=== PATIENT | female | born 1995 | race African-American/Black ===

== ENCOUNTER 2017-03-01 13:32 | Emergency (ER) | payer OTHER ==
[~2017-03-01] VITALS: Ht 180.3 cm; Wt 80.0 kg
[2017-03-01 13:33] VITALS: BP 120/82; PULSE 90; RESP 20; TEMP 99; O2SAT 100
[2017-03-01] MEDS ORDERED: SODIUM CHLOR 0.9% 1000 ML INJ 1,000 ML IV ONE (13:46)
--- NOTE | 2017-03-01 13:51 | PD ---
HPI Chief Complaint: Sickle Cell Time Seen by Provider: 13:38 Travel History International Travel<30 days: No Contact w/Intl Traveler<30days: No Traveled to known affect area: No History of Present Illness HPI 21-year-old female, with history of sickle cell anemia (SS), presents to the emergency department with complaint of lower back pain that onset this morning. Says sickle cell pain is usually in her joints and back. Denies injury. Denies fever, vomiting. Denies chest pain, shortness of breath, abdominal pain. Reports urinary frequency and hesitancy. Denies dysuria. Denies vaginal discharge, odor, itch. Denies encopresis, incontinence, saddle anesthesias. Denies IV drug use or cancer. Denies paresthesias, loss of sensation, decreased range of motion, decreased strength to bilateral lower extremities. Last menstrual period ended today. Reports low back pain as stabbing sensation. Rates the pain 6/10. Has not taken any medications to alleviate her symptoms. Tried a heating pad for symptom management. No known relieving or aggravating factors. Primary care provider is Dr. Capps. Denies other significant past medical history. Allergies to Levaquin. Has no other medical complaints. No other modifying factors or associated signs and symptoms. PFSH Past Medical History Sickle Cell Disease: Yes ?: Not LMP: 03/01/17 Past Surgical History Surgical History: No Previous Surgery Social History Alcohol Use: No Tobacco Use: No Substance Use: No Allergies-Medications (Allergen,Severity, Reaction): Coded Allergies: levofloxacin (Verified Allergy, Unknown, 03/01/17) Reported Meds & Prescriptions Reported Meds & Active Scripts Active Pyridium (Phenazopyridine HCl) 100 Mg Tab 100 Mg PO Q8H PRN 3 Days [place] (Hydrocodone-Acetaminophen) 5 Mg-325 Mg Tab 1 Tab PO Q4H PRN Bactrim DS (Sulfamethoxazole-Trimethoprim) 800-160 Mg Tab 1 Tab PO BID 7 Days Review of Systems Except as stated in HPI: all other systems reviewed are Neg Physical Exam Narrative GENERAL: Well-nourished, well-developed black female patient, in no acute distress; afebrile, nontoxic-appearing SKIN: Warm and dry. HEAD: Atraumatic. Normocephalic. EYES: Pupils equal and round. No scleral icterus. No injection or drainage. ENT: Mucosa pink and moist. Airway patent. NECK: Trachea midline. CARDIOVASCULAR: Regular rate and rhythm. No murmur appreciated. RESPIRATORY: No accessory muscle use. Breath sounds clear and equal bilaterally. No retractions or tachypnea. GASTROINTESTINAL: Abdomen soft, non-tender, nondistended. Positive bowel sounds. No hepato-splenomegaly, or palpable masses. No guarding. MUSCULOSKELETAL: Bilateral lower extremities supple and non-tense with 2+ pedal pulses and sensory intact; with full range of motion and 5/5 strength. 2 + DTRs bilaterally. Active dorsiflexion and extension of bilateral feet. Bilateral straight leg raise is negative for low back pain. Ambulatory in room with normal gait. Sitting up in bed at 90. No obvious deformities. No clubbing. No cyanosis. No edema. BACK: Bilateral CVA tenderness. No midline point tenderness on palpation of the lumbar spine. Tenderness on palpation of bilateral lumbar iliosacral area. No obvious deformities. NEUROLOGICAL: Awake and alert. Oriented 3. No obvious cranial nerve deficits. Motor grossly within normal limits. Normal speech. Moves all extremities. 5/5 strength to all extremities. Sensory intact. PSYCHIATRIC: Appropriate mood and affect; insight and judgment normal. Data Data Last Documented VS Vital Signs Date Time Temp Pulse Resp B/P (MAP) Pulse Ox O2 Delivery O2 Flow Rate FiO2 03/01/17 13:43 17 Room Air 03/01/17 13:33 99.0 90 120/82 (95) 100 Orders Orders Complete Blood Count With Diff (03/01/17 13:46) Retic Count (03/01/17 13:46) Urinalysis - C+S If Indicated (03/01/17 13:46) Ecg Monitoring (03/01/17 13:46) Iv Access Insert/Monitor (03/01/17 13:46) Oximetry (03/01/17 13:46) Ketorolac Inj (Toradol Inj) (03/01/17 14:00) Sodium Chloride 0.9% Flush (Ns Flush) (03/01/17 14:00) Sodium Chlor 0.9% 1000 Ml Inj (Ns 1000 M (03/01/17 13:46) Ed Urine Pregnancytest Poc (03/01/17 13:46) Urine Culture (03/01/17 14:20) Morphine Inj (Morphine Inj) (03/01/17 15:45) Ceftriaxone Inj (Rocephin Inj) (03/01/17 15:45) Ed Discharge Order (03/01/17 15:38) Labs Laboratory Tests Test 03/01/17 14:20 White Blood Count 8.8 TH/MM3 Red Blood Count 2.79 MIL/MM3 Hemoglobin 8.4 GM/DL Hematocrit 24.7 % Mean Corpuscular Volume 88.7 FL Mean Corpuscular Hemoglobin 30.2 PG Mean Corpuscular Hemoglobin Concent 34.1 % Red Cell Distribution Width 26.5 % Platelet Count 837 TH/MM3 Mean Platelet Volume 8.1 FL CBC Comment AUTO DIFF Reticulocyte Count 7.7 % Absolute Reticulocyte Count 213.7 MIL/L Urine Color YELLOW Urine Turbidity HAZY Urine pH 7.5 Urine Specific [place] 1.013 Urine Protein 30 mg/dL Urine Glucose (UA) NEG mg/dL Urine Ketones NEG mg/dL Urine Occult Blood TRACE Urine Nitrite NEG Urine Bilirubin NEG Urine Urobilinogen GREATER THAN 12.0 MG/DL Urine Leukocyte Esterase LARGE Urine RBC 4 /hpf Urine WBC /hpf Urine WBC Clumps MANY Urine Bacteria MOD /hpf Microscopic Urinalysis Comment CULTURE INDICATED MDM Medical Decision Making Medical Screen Exam Complete: Yes Emergency Medical Condition: Yes Medical Record Reviewed: Yes Differential Diagnosis Sickle cell pain, sickle cell crisis, pyelonephritis, UTI Narrative Course 21-year-old female with history of sickle cell anemia complaining of low back pain. Denies injury. Denies encopresis, incontinence, saddle anesthesias. Denies IV drug use or cancer. Patient is reporting urinary symptoms. I discussed the patient with my attending physician, Dr. Moy. IV set obtained. CBC, retic count, urinalysis, UPT, fluid bolus, Toradol ordered. 1504: Urinalysis with signs of infection. 1528: Hemoglobin 8.4. Platelet count 837. Retic Count 7.7. Absolute retic 213.7. Rocephin 1 g IV, morphine 4 mg administered in the ER. Suspecting pyelonephritis. I discussed the patient with Dr. Moy, my attending physician, and he agrees with my plan of care and discharge. Bactrim, [place], Pyridium prescribed for home. Instructed patient to follow up with primary care provider. Patient verbalizes understanding and agreement with treatment plan. Patient is medically cleared and stable for discharge. Discussed reasons to return to the emergency department. Patient agrees with treatment plan. The patients vital signs are stable and the patient is stable for outpatient follow-up and treatment. Patient discharged home, stable and in no acute distress. Diagnosis Primary Impression: Sickle cell crisis Additional Impression: UTI (urinary tract infection) Qualified Codes: N39.0 - Urinary tract infection, site not specified; R31.9 - Hematuria, unspecified Referrals: Primary Care Physician Patient Instructions: General Instructions, Urinary Tract Infection in Women ( ED), Sickle Cell Crisis (ED) Additional Instructions: Take antibiotics as prescribed and complete full course Drink plenty of fluids Maintain good personal hygiene Follow-up with primary care provider Return to the emergency department immediately with worsening of symptoms Med/Other Pt SpecificInfo: Prescription(s) given Scripts Phenazopyridine (Pyridium) 100 Mg Tab 100 MG PO Q8H Y for DYSURIA for 3 Days, #9 TAB 0 Refills Prov: Katerin Chang 03/01/17 Hydrocodone-Acetaminophen (Darby) 5 Mg-325 Mg Tab 1 TAB PO Q4H Y for PAIN, #8 TAB 0 Refills Prov: Katerin Chang 03/01/17 Sulfamethoxazole-Trimethoprim (Bactrim DS) 800-160 Mg Tab 1 TAB PO BID for Infection for 7 Days, #14 TAB 0 Refills Prov: Katerin Chang 03/01/17 Disposition: 01 DISCHARGE HOME Condition: Stable Katerin Chang Mar 01, 2017 13:51
[2017-03-01] MEDS ORDERED: KETOROLAC TROMETHAMINE 30 MG/ML (IVP) VIAL IVP ONE (14:00)
[2017-03-01] MEDS ORDERED: SODIUM CHLORIDE 0.9% FLUSH 10 ML FLUSH IVF PRN (14:00)
[2017-03-01 14:38] LABS: BACTERIA, URINE MOD /hpf; BLOOD, URINE TRACE (NEG); COMMENT (UR) CULTURE INDICATED; CULTURE IF INDICATED CULTURE INDICATED; GLUCOSE,URINE NEG (NEG); KETONE, URINE NEG (NEG); NITRITE,URINE NEG (NEG); PH, URINE 7.5 (5.0-8.5); URINE COLOR YELLOW (YELLW/STRAW)
[2017-03-01 14:48] LABS: HEMATOCRIT 24.7 % (35.0-46.0); MEAN CELL VOLUME 88.7 FL (80.0-100.0); MEAN CORPUSCULAR HEMOGLOBIN 30.2 PG (27.0-34.0); MEAN CORPUSCULAR HGB CONC 34.1 % (32.0-36.0); PLATELET COUNT 837 TH/MM3 (150-450); RED BLOOD COUNT 2.79 MIL/MM3 (4.00-5.30); RED CELL DISTRIBUTION WIDTH 26.5 % (11.6-17.2); RETIC % 7.7 % (0.4-3.0); WHITE BLOOD COUNT 8.8 TH/MM3 (4.0-11.0)
[2017-03-01] MEDS ORDERED: CEPH-460 PO (15:03)
[2017-03-01 15:21] LABS: HEMO FLAGS AUTO DIFF
[2017-03-01 15:29] LABS: BASOPHILS 2 % (0-2); CORRECTED NUCLEATED RBC 2 /100 WBC (0-0); NEUTROPHIL # MANUAL DIFF 4.1 TH/MM3 (1.8-7.7); PLATELET ESTIMATE SMEAR HIGH (NORMAL); PLATELET MORPHOLOGY NORMAL (NORMAL); POLYS (SEG NEUTROPHILS) 47 % (16-70); SCAN/DIFF FINAL DIFF MANUAL; WBC DIFF SAMPLE 100
[2017-03-01 15:30] LABS: SICKLE CELLS 1+ (NORMAL); TARGET CELLS 2+ (NORMAL)
[2017-03-01 15:32] LABS: HOWELL-JOLLY BODIES PRESENT (NONE SEEN)
[2017-03-01 15:33] LABS: SPHEROCYTES 1+ (NORMAL)
[2017-03-01] MEDS ORDERED: NORC5TAB PO (15:36)
[2017-03-01] MEDS ORDERED: BACT800T5 PO (15:36)
[2017-03-01] MEDS ORDERED: PHEN0.4T PO (15:36)
[2017-03-01] MEDS ORDERED: MORPHINE SULFATE 4 MG/ML INJ IV PUSH ONE (15:45)
[2017-03-01] MEDS ORDERED: cefTRIAXone INJ 1,000 MG in SODIUM CHLORIDE 0.9% INJ 100 ML IV ONE (15:45)
[2017-03-01 16:06] VITALS: BP 91/55; PULSE 66; RESP 16; O2SAT 99
[2017-03-01 16:35] VITALS: BP 113/67; PULSE 61; RESP 16; O2SAT 99
== END 2017-03-01 17:47 | disposition home or self-care (01) ==
LOC: NEPC 13:32
DX: D57.00 Hb-SS disease with crisis, unspecified (principal); N39.0 Urinary tract infection, site not specified; R31.9 Hematuria, unspecified; B96.1 Klebsiella pneumoniae [K. pneumoniae] as the cause of diseases classified elsewhere; Z86.2 Personal history of diseases of the blood and blood-forming organs and certain disorders involving the immune mechanism
CPT/HCPCS: 81001; 84703; 85007; 85027; 85044; 87077; 87086; 87186; 96361; 96365; 96375; 99284; J0696; J1885; J2270; J7030

== ENCOUNTER 2017-03-04 21:14 | Inpatient (IN) | payer OTHER ==
[~2017-03-04] VITALS: Ht 180.3 cm; Wt 77.6 kg
[~2017-03-04 21:14] MED LIST: BACT800T5 PO; NORC5TAB PO; PHEN0.4T PO
[2017-03-04 21:16] VITALS: BP 141/59; PULSE 83; RESP 16; TEMP 98.8; O2SAT 100
--- NOTE | 2017-03-04 21:34 | PD ---
HPI Chief Complaint: Sickle Cell Time Seen by Provider: 21:33 Travel History International Travel<30 days: No Contact w/Intl Traveler<30days: No Traveled to known affect area: No History of Present Illness HPI 21-year-old female came to the emergency room with history of painful crisis. She has history of sickle cell disease. She was in the emergency room on the March 01 for pain and was diagnosed with UTI besides being treated for her pain. She was given a dose of Rocephin and Bactrim to go home on. Patient tells me that she has been taking the Bactrim like she supposed to. It is difficult to hear her since she speaks very softly and she keeps complaining of her pain. PFSH Past Medical History Narrative Medical List of her past medical, surgical, social and family history is reviewed from the nursing note. Sickle Cell Disease: Yes ?: Not LMP: 03/01/17 Past Surgical History Abdominal Surgery: Yes (SPLENECTOMY) Cholecystectomy: Yes Social History Alcohol Use: No Tobacco Use: No Substance Use: No Allergies-Medications (Allergen,Severity, Reaction): Coded Allergies: levofloxacin (Verified Allergy, Unknown, 03/04/17) Comments List of her allergies reviewed from the nursing note. Reported Meds & Prescriptions Reported Meds & Active Scripts Active Pyridium (Phenazopyridine HCl) 100 Mg Tab 100 Mg PO Q8H PRN 3 Days [place] (Hydrocodone-Acetaminophen) 5 Mg-325 Mg Tab 1 Tab PO Q4H PRN Bactrim DS (Sulfamethoxazole-Trimethoprim) 800-160 Mg Tab 1 Tab PO BID 7 Days Narrative Medication List of her home medications reviewed from the nursing note. Review of Systems Except as stated in HPI: all other systems reviewed are Neg Musculoskeletal: Positive: Pain Physical Exam Narrative GENERAL: Awake, alert, moderate distress SKIN: Focused skin assessment warm/dry. HEAD: Atraumatic. Normocephalic. EYES: Pupils equal and round. No scleral icterus. No injection or drainage. ENT: No nasal bleeding or discharge. Mucous membranes pink and moist. NECK: Trachea midline. No JVD. CARDIOVASCULAR: Regular rate and rhythm. No murmur appreciated. RESPIRATORY: No accessory muscle use. Clear to auscultation. Breath sounds equal bilaterally. GASTROINTESTINAL: Abdomen soft, non-tender, nondistended. Hepatic and splenic margins not palpable. MUSCULOSKELETAL: No obvious deformities. No clubbing. No cyanosis. No edema. NEUROLOGICAL: Awake and alert. No obvious cranial nerve deficits. Motor grossly within normal limits. Normal speech. PSYCHIATRIC: Appropriate mood and affect; insight and judgment normal. Data Data Last Documented VS Vital Signs Date Time Temp Pulse Resp B/P (MAP) Pulse Ox O2 Delivery O2 Flow Rate FiO2 03/04/17 21:16 98.8 83 16 141/59 (86) 100 Room Air Orders Orders Complete Blood Count With Diff (03/04/17 21:49) Retic Count (03/04/17 21:49) Urinalysis - C+S If Indicated (03/04/17 21:49) Morphine Inj (Morphine Inj) (03/04/17 22:00) Sodium Chlor 0.9% 1000 Ml Inj (Ns 1000 M (03/04/17 22:00) Urine Culture (03/04/17 22:00) Comprehensive Metabolic Panel (03/05/17 00:22) Lactic Acid (03/05/17 00:22) Blood Culture (03/05/17 00:22) Sodium Chlor 0.9% 1000 Ml Inj (Ns 1000 M (03/05/17 00:30) Morphine Inj (Morphine Inj) (03/05/17 00:30) Ceftriaxone Inj (Rocephin Inj) (03/05/17 00:30) Labs Laboratory Tests Test 03/04/17 22:00 03/04/17 22:18 03/05/17 00:55 03/05/17 00:58 Urine Color YELLOW Urine Turbidity CLEAR Urine pH 6.0 Urine Specific [place] 1.009 Urine Protein TRACE mg/dL Urine Glucose (UA) NEG mg/dL Urine Ketones NEG mg/dL Urine Occult Blood NEG Urine Nitrite NEG Urine Bilirubin NEG Urine Urobilinogen LESS THAN 2.0 MG/DL Urine Leukocyte Esterase LARGE Urine RBC 7 /hpf Urine WBC 77 /hpf Urine Renal Epithelial Cells 1 /hpf Urine Mucus FEW /lpf Microscopic Urinalysis Comment CULTURE INDICATED White Blood Count 23.5 TH/MM3 Red Blood Count 2.71 MIL/MM3 Hemoglobin 8.0 GM/DL Hematocrit 23.4 % Mean Corpuscular Volume 86.2 FL Mean Corpuscular Hemoglobin 29.5 PG Mean Corpuscular Hemoglobin Concent 34.2 % Red Cell Distribution Width 23.8 % Platelet Count 710 TH/MM3 Mean Platelet Volume 8.4 FL Neutrophils (%) (Auto) 53.6 % Lymphocytes (%) (Auto) 40.0 % Monocytes (%) (Auto) 4.2 % Eosinophils (%) (Auto) 0.6 % Basophils (%) (Auto) 1.6 % Neutrophils # (Auto) 12.6 TH/MM3 Lymphocytes # (Auto) 9.4 TH/MM3 Monocytes # (Auto) 1.0 TH/MM3 Eosinophils # (Auto) 0.1 TH/MM3 Basophils # (Auto) 0.4 TH/MM3 CBC Comment AUTO DIFF Differential Total Cells Counted 100 Neutrophils % (Manual) 66 % Lymphocytes % 28 % Monocytes % 6 % Neutrophils # (Manual) 15.5 TH/MM3 Nucleated Red Blood Cells 1 /100 WBC Differential Comment FINAL DIFF MANUAL Toxic Vacuolation PRESENT Platelet Estimate HIGH Platelet Morphology Comment NORMAL Polychromasia 6.6 % Target Cells 1+ Li-[place] Bodies PRESENT Acanthocytes OCC Reticulocyte Count 4.0 % Absolute Reticulocyte Count 109.0 MIL/L MDM Medical Decision Making Medical Screen Exam Complete: Yes Emergency Medical Condition: Yes Medical Record Reviewed: Yes Differential Diagnosis Painful crisis, UTI Narrative Course 1:37 AM her CBC suggestive of significant leukocytosis and thrombocytosis which is different from her last visit 4 days ago. Besides the fact the differential shows toxic vacuolation as well suggestive of SBI. The UA was positive for UTI which makes me suspicious that the patient is truly compliant with her antibiotics since the urine culture from her last visit grew Klebsiella which was sensitive to Bactrim. I had initially given her 1 L of IV fluid bolus and morphine. Patient continued to complain of pain and I given her a second dose of morphine. I will also ordered a second liter of IV fluid bolus and IV Rocephin. I've ordered chemistry and lactic acid. However based on these results I want to admit her for worsening infection possibly from the UTI. I discussed the case with the hospitalist and she has accepted the patient. Procedures EKG Prior to Arrival: No Sepsis Criteria SIRS Criteria (2 or more): WBC > 03082, < 4000 or > 10% bands Diagnosis Primary Impression: UTI (urinary tract infection) Qualified Codes: N39.0 - Urinary tract infection, site not specified Additional Impressions: SIRS (systemic inflammatory response syndrome) Sickle cell crisis Admitting Information Admitting Physician Requests: Bandar Whiteside MD Mar 04, 2017 21:34
[2017-03-04] MEDS ORDERED: MORPHINE SULFATE 4 MG/ML INJ IV PUSH ONE (22:00)
[2017-03-04] MEDS ORDERED: SODIUM CHLOR 0.9% 1000 ML INJ 1,000 ML IV ONE (22:00)
[2017-03-04 23:18] LABS: AUTOMATED NEUTROPHIL # 12.6 TH/MM3 (1.8-7.7); BASOPHIL # 0.4 TH/MM3 (0-0.2); BASOPHIL % 1.6 % (0.0-2.0); EOSINOPHIL # 0.1 TH/MM3 (0-0.4); EOSINOPHIL % 0.6 % (0.0-4.0); HEMATOCRIT 23.4 % (35.0-46.0); LYMPHOCYTE # 9.4 TH/MM3 (1.0-4.8); MEAN CELL VOLUME 86.2 FL (80.0-100.0); MEAN CORPUSCULAR HEMOGLOBIN 29.5 PG (27.0-34.0); MEAN CORPUSCULAR HGB CONC 34.2 % (32.0-36.0); MONO % 4.2 % (0.0-8.0); NEUT % 53.6 % (16.0-70.0); PLATELET COUNT 710 TH/MM3 (150-450); RED BLOOD COUNT 2.71 MIL/MM3 (4.00-5.30); RED CELL DISTRIBUTION WIDTH 23.8 % (11.6-17.2); WHITE BLOOD COUNT 23.5 TH/MM3 (4.0-11.0)
[2017-03-04 23:26] LABS: HEMO FLAGS AUTO DIFF; REVIEW FLAG AUTO DIFF
[2017-03-04 23:33] LABS: BLOOD, URINE NEG (NEG); COMMENT (UR) CULTURE INDICATED; CULTURE IF INDICATED CULTURE INDICATED; GLUCOSE,URINE NEG (NEG); KETONE, URINE NEG (NEG); MUCUS URINE FEW /lpf (OCC); NITRITE,URINE NEG (NEG); RENAL EPITHELIAL CELLS 1 /hpf; URINE COLOR YELLOW (YELLW/STRAW)
[2017-03-04 23:57] LABS: CORRECTED NUCLEATED RBC 1 /100 WBC (0-0); NEUTROPHIL # MANUAL DIFF 15.5 TH/MM3 (1.8-7.7); POLYS (SEG NEUTROPHILS) 66 % (16-70); WBC DIFF SAMPLE 100
[2017-03-05 00:01] LABS: PLATELET ESTIMATE SMEAR HIGH (NORMAL); PLATELET MORPHOLOGY NORMAL (NORMAL)
[2017-03-05 00:02] LABS: ACANTHOCYTES OCC (NORMAL); HOWELL-JOLLY BODIES PRESENT (NONE SEEN); TARGET CELLS 1+ (NORMAL)
[2017-03-05 00:04] LABS: POLYCHROMASIA 6.6 % (0.0-1.9); SCAN/DIFF FINAL DIFF MANUAL
[2017-03-05 00:05] LABS: TOXIC VACUOLATION PRESENT (NONE SEEN)
[2017-03-05] MEDS ORDERED: MORPHINE SULFATE 4 MG/ML INJ IV PUSH ONE (00:30)
[2017-03-05] MEDS ORDERED: SODIUM CHLOR 0.9% 1000 ML INJ 1,000 ML IV ONE (00:30)
[2017-03-05] MEDS ORDERED: cefTRIAXone INJ 1,000 MG in SODIUM CHLORIDE 0.9% INJ 100 ML IV ONE (00:30)
[2017-03-05] MEDS ORDERED: ACETAMINOPHEN 325 MG TAB PO PRN (01:45)
[2017-03-05] MEDS ORDERED: ONDANSETRON HCL 4 MG/2 ML VIAL IVP PRN (01:45)
[2017-03-05] MEDS ORDERED: MAGNESIUM HYDROXIDE SUSP 30 ML CUP PO PRN (01:45)
[2017-03-05] MEDS ORDERED: LACTULOSE SYRUP 20 GM/30 ML CUP PO PRN (01:45)
[2017-03-05] MEDS ORDERED: NALOXONE HCL 0.4 MG/ML AMP IV PUSH PRN (01:45)
[2017-03-05] MEDS ORDERED: SENNOSIDES 8.6 MG TAB PO PRN (01:45)
[2017-03-05] MEDS ORDERED: BISACODYL 10 MG SUPP RECTAL PRN (01:45)
[2017-03-05 02:05] LABS: ALKALINE PHOSPHATASE 113 U/L (45-117); TOTAL BILIRUBIN ADULT 1.6 MG/DL (0.2-1.0)
[2017-03-05 02:06] LABS: ALT (GPT) 18 U/L (9-42); ANION GAP 8 MEQ/L (5-15); AST (GOT) 39 U/L (16-38); BICARBONATE 23.6 MEQ/L (21.0-32.0); BLOOD UREA NITROGEN 6 MG/DL (7-18); CHLORIDE 111 MEQ/L (98-107); GLOMERULAR FILTRATION RATE 164 ML/MIN (>89); POTASSIUM 4.9 MEQ/L (3.5-5.1); SODIUM (NA) 143 MEQ/L (136-145)
--- NOTE | 2017-03-05 02:26 | RADRPT ---
EXAM DATE/TIME: 03/05/2017 01:48 [place] COMPARISON: No previous studies available for comparison. INDICATIONS : Short of breath. Sickle cell crisis. MEDICAL HISTORY : Sickle Cell disease. SURGICAL HISTORY : None. ENCOUNTER: Initial ACUITY: 1 day PAIN SCORE: 0/10 LOCATION: Bilateral chest FINDINGS: A single view of the chest demonstrates the lungs to be symmetrically aerated without evidence of mas s, infiltrate or effusion. The cardiomediastinal contours are unremarkable. Osseous structures are intact. CONCLUSION: Normal examination. León Mas MD on March 05, 2017 at 2:24 Board Certified Radiologist. This report was verified electronically.
[2017-03-05] MEDS: SODIUM CHLOR 0.9% 1000 ML INJ 1,000 ML IV SCH ×3 (02:34→22:45)
[2017-03-05] MEDS: HYDROmorphone HCL PF 1 MG/ML VIAL IV PUSH PRN ×6 (02:37→22:46)
[2017-03-05] MEDS: SODIUM CHLORIDE 0.9% FLUSH 10 ML FLUSH IV FLUSH PRN ×2 (02:37→06:51)
[2017-03-05 02:40] VITALS: BP 103/55
[2017-03-05 04:03] VITALS: BP 87/48; PULSE 84; RESP 18; TEMP 98.2; O2SAT 98
[2017-03-05] MEDS ORDERED: ACETAMINOPHEN/HYDROcodone 325 MG/5 MG TAB PO PRN (04:45)
--- NOTE | 2017-03-05 05:25 | HHI.HP ---
[facility] Service [facility] Primary Care Physician Ash Capps MD Admission Diagnosis SIRS, UTI, sickle cell pain crisis Diagnoses: Travel History International Travel<30 Days: No Contact w/Intl Traveler <30 Da: No Traveled to Known Affected Are: No History of Present Illness 21-year-old female with a past medical history significant for sickle cell disease presents with a sickle cell pain crisis. The patient reports she has pain in her bilateral lower extremities, worse in the knees. She does not have any lower extremity swelling or joint effusions. She sees Dr. 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 The patient reports her pain is typical for her pain crisis. It is improved with Dilaudid. She denies any chest pain, tightness or shortness of breath. Chest x-ray within normal limits. Patient was recently seen in the ED on 03/01 she was treated for her pain crisis and found to have a urinary tract infection. The patient was given 1 g of Rocephin and discharged to home with Bactrim. Urine culture positive for Klebsiella, sensitive to Bactrim. The patient did not take her Bactrim as prescribed and reports only taking 1 pill since she was discharged. She denies any symptoms of dysuria. Labs significant for a leukocytosis of 23.5. Lactic acid 1.6. UA shows large leukocyte esterase with 77 WBCs. Review of Systems Denies fever or chills Denies blurry vision, otorrhea, rhinorrhea Denies sore throat and cough No chest pain, palpitations, shortness of breath No abdominal pain Denies constipation/diarrhea/nausea/vomiting Bilateral lower extremity pain No rashes Past Family Social History Past Medical History Sickle cell disease Past Surgical History Cholecystectomy Splenectomy Reported Medications Hydroxyurea Folic acid Allergies: Coded Allergies: levofloxacin (Verified Allergy, Unknown, 03/04/17) Family History Denies family history of diabetes and coronary artery disease. Social History Denies tobacco, alcohol and illicit drugs Physical Exam Vital Signs Vital Signs Date Time Temp Pulse Resp B/P (MAP) Pulse Ox O2 Delivery O2 Flow Rate FiO2 03/05/17 04:03 98.2 84 18 87/48 (61) 98 03/05/17 03:11 16 03/05/17 02:40 68 16 103/55 (71) 98 03/04/17 22:00 100 Room Air 03/04/17 21:16 98.8 83 16 141/59 (86) 100 Room Air Physical Exam GENERAL: female lying in bed sleeping SKIN: No rashes, ecchymoses or lesions. Cool and dry. HEAD: Atraumatic. Normocephalic. No temporal or scalp tenderness. EYES: Pupils equal round and reactive. Extraocular motions intact. No scleral icterus. No injection or drainage. ENT: Nose without bleeding, purulent drainage or septal hematoma. Throat without erythema, tonsillar hypertrophy or exudate. Uvula midline. Airway patent. NECK: Trachea midline. No JVD or lymphadenopathy. Supple, nontender, no meningeal signs. CARDIOVASCULAR: Regular rate and rhythm without murmurs, gallops, or rubs. RESPIRATORY: Clear to auscultation. Breath sounds equal bilaterally. No wheezes , rales, or rhonchi. GASTROINTESTINAL: Abdomen soft, non-tender, nondistended. No hepato-splenomegaly , or palpable masses. No guarding. MUSCULOSKELETAL: Extremities without clubbing, cyanosis, or edema. No joint tenderness, effusion, or edema noted. Negative Homans sign bilaterally. NEUROLOGICAL: Awake and alert. Cranial nerves II through XII intact. Motor and sensory grossly within normal limits. Normal speech. Laboratory Laboratory Tests Test 03/04/17 22:00 03/04/17 22:18 03/05/17 00:55 03/05/17 00:58 Urine Color YELLOW Urine Turbidity CLEAR Urine pH 6.0 Urine Specific [place] 1.009 Urine Protein TRACE Urine Glucose (UA) NEG Urine Ketones NEG Urine Occult Blood NEG Urine Nitrite NEG Urine Bilirubin NEG Urine Urobilinogen LESS THAN 2.0 Urine Leukocyte Esterase LARGE Urine RBC 7 Urine WBC 77 Urine Renal Epithelial Cells 1 Urine Mucus FEW Microscopic Urinalysis Comment CULTURE INDICATED White Blood Count 23.5 Red Blood Count 2.71 Hemoglobin 8.0 Hematocrit 23.4 Mean Corpuscular Volume 86.2 Mean Corpuscular Hemoglobin 29.5 Mean Corpuscular Hemoglobin Concent 34.2 Red Cell Distribution Width 23.8 Platelet Count 710 Mean Platelet Volume 8.4 Neutrophils (%) (Auto) 53.6 Lymphocytes (%) (Auto) 40.0 Monocytes (%) (Auto) 4.2 Eosinophils (%) (Auto) 0.6 Basophils (%) (Auto) 1.6 Neutrophils # (Auto) 12.6 Lymphocytes # (Auto) 9.4 Monocytes # (Auto) 1.0 Eosinophils # (Auto) 0.1 Basophils # (Auto) 0.4 CBC Comment AUTO DIFF Differential Total Cells Counted 100 Neutrophils % (Manual) 66 Lymphocytes % 28 Monocytes % 6 Neutrophils # (Manual) 15.5 Nucleated Red Blood Cells 1 Differential Comment FINAL DIFF MANUAL Toxic Vacuolation PRESENT Platelet Estimate HIGH Platelet Morphology Comment NORMAL Polychromasia 6.6 Target Cells 1+ Li-[place] Bodies PRESENT Acanthocytes OCC Reticulocyte Count 4.0 Absolute Reticulocyte Count 109.0 Blood Urea Nitrogen 6 Creatinine 0.57 Random Glucose 79 Total Protein 6.9 Albumin 3.9 Calcium Level 8.5 Alkaline Phosphatase 113 Aspartate Amino Transf (AST/SGOT) 39 Alanine Aminotransferase (ALT/SGPT) 18 Total Bilirubin 1.6 Sodium Level 143 Potassium Level 4.9 Chloride Level 111 Carbon Dioxide Level 23.6 Anion Gap 8 Estimat Glomerular Filtration Rate 164 Lactic Acid Level 1.6 Date/Time Source Procedure Growth Status 03/05/17 01:15 Blood Peripheral Aerobic Blood Culture Pending Received 03/05/17 01:15 Blood Peripheral Anaerobic Blood Culture Pending Received 03/04/17 22:00 Urine Clean Catch Urine Culture Pending Received Result Diagram: 03/04/17 2218 03/05/17 0055 Caprini VTE Risk Assessment Caprini VTE Risk Assessment: No/Low Risk (score <= 1) Caprini Risk Assessment Model Point Value = 1 Point Value = 2 Point Value = 3 Point Value = 5 Age 41-60 Minor surgery BMI > 25 kg/m2 Swollen legs Varicose veins or History of unexplained or recurrent spontaneous Oral contraceptives or hormone replacement Sepsis (< 1 month) Serious lung disease, including pneumonia (< 1 month) Abnormal pulmonary function Acute myocardial infarction Congestive heart failure (< 1 month) History of inflammatory bowel disease Medical patient at bed rest Age 61-74 Arthroscopic surgery Major open surgery (> 45 min) Laparoscopic surgery (> 45 min) Malignancy Confined to bed (> 72 hours) Immobilizing plaster cast Central venous access Age >= 75 History of VTE Family history of VTE Factor V Leiden Prothrombin [id number] Lupus anticoagulant Anticardiolipin antibodies Elevated serum homocysteine Heparin-induced thrombocytopenia Other congenital or acquired thrombophilia Stroke (< 1 month) Elective arthroplasty Hip, pelvis, or leg fracture Acute spinal cord injury (< 1 month) Prophylaxis Regimen Total Risk Factor Score Risk Level Prophylaxis Regimen 0-1 Low Early ambulation 2 Moderate Order ONE of the following: *Sequential Compression Device (SCD) *Heparin 5000 units SQ BID 3-4 Higher Order ONE of the following medications: *Heparin 5000 units SQ TID *Enoxaparin/Lovenox 40 mg SQ daily (WT < 150 kg, CrCl > 30 mL/min) *Enoxaparin/Lovenox 30 mg SQ daily (WT < 150 kg, CrCl > 10-29 mL/min) *Enoxaparin/Lovenox 30 mg SQ BID (WT < 150 kg, CrCl > 30 mL/min) AND/OR *Sequential Compression Device (SCD) 5 or more Highest Order ONE of the following medications: *Heparin 5000 units SQ TID (Preferred with Epidurals) *Enoxaparin/Lovenox 40 mg SQ daily (WT < 150 kg, CrCl > 30 mL/min) *Enoxaparin/Lovenox 30 mg SQ daily (WT < 150 kg, CrCl > 10-29 mL/min) *Enoxaparin/Lovenox 30 mg SQ BID (WT < 150 kg, CrCl > 30 mL/min) AND *Sequential Compression Device (SCD) Assessment and Plan Assessment and Plan 21-year-old female with sickle cell disease presents with persisting urinary tract infection and sickle cell pain crisis. 1. Sickle cell pain crisis No evidence of acute chest syndrome Dilaudid for pain IV fluid hydration 2. Partially treated urinary tract infection Per previous culture, sensitive to Rocephin and Bactrim Continue Rocephin Urine culture pending Counseled patient as to the importance of completing the full course of antibiotic therapy FEN Heart healthy diet NS at 100 cc/hr Electrolytes: Monitor and replete prn Anticipate d/c later today with PO antibiotics Yamilet Rust MD Mar 05, 2017 05:25
[2017-03-05 08:00] VITALS: BP 96/53; PULSE 61; RESP 16; TEMP 98.6; O2SAT 98
[2017-03-05] MEDS: DOCUSATE SODIUM 50 MG/SENNA 8.6 MG TAB PO SCH ×2 (09:00→21:00)
[2017-03-05] MEDS: SODIUM CHLORIDE 0.9% FLUSH 10 ML FLUSH IV FLUSH SCH ×2 (09:14→21:00)
[2017-03-05 10:00] LABS: HEMATOCRIT 22.7 % (35.0-46.0); MEAN CELL VOLUME 86.1 FL (80.0-100.0); MEAN CORPUSCULAR HEMOGLOBIN 28.4 PG (27.0-34.0); PLATELET COUNT 722 TH/MM3 (150-450); RED BLOOD COUNT 2.63 MIL/MM3 (4.00-5.30); RED CELL DISTRIBUTION WIDTH 24.5 % (11.6-17.2); WHITE BLOOD COUNT 17.3 TH/MM3 (4.0-11.0)
[2017-03-05 10:08] LABS: HEMO FLAGS AUTO DIFF
[2017-03-05 10:33] LABS: BICARBONATE 23.5 MEQ/L (21.0-32.0); POTASSIUM 3.8 MEQ/L (3.5-5.1)
[2017-03-05 10:45] LABS: BANDS 1 % (0-6); EOSINOPHILS 1 % (0-4); NEUTROPHIL # MANUAL DIFF 11.6 TH/MM3 (1.8-7.7); POLYS (SEG NEUTROPHILS) 66 % (16-70); SICKLE CELLS 1+ (NORMAL); TARGET CELLS 1+ (NORMAL); WBC DIFF SAMPLE 100
[2017-03-05 10:46] LABS: PLATELET ESTIMATE SMEAR HIGH (NORMAL); PLATELET MORPHOLOGY NORMAL (NORMAL); SCAN/DIFF FINAL DIFF MANUAL
[2017-03-05 12:20] VITALS: BP 100/65; PULSE 74; RESP 16; TEMP 98.5; O2SAT 100
[2017-03-05 16:05] VITALS: BP 98/54; PULSE 74; RESP 18; TEMP 98.2; O2SAT 100
[2017-03-05 20:00] VITALS: BP 101/64; PULSE 72; RESP 18; TEMP 98.3; O2SAT 99
[2017-03-05] MEDS: cefTRIAXone INJ 1,000 MG in SODIUM CHLORIDE 0.9% INJ 100 ML IV SCH (22:45)
[2017-03-06] VITALS: BP 105/62; PULSE 75; RESP 18; TEMP 98.2; O2SAT 97
[2017-03-06] MEDS: HYDROmorphone HCL PF 1 MG/ML VIAL IV PUSH PRN ×5 (02:52→18:44)
[2017-03-06] MEDS ORDERED: HYDROmorphone HCL PF 1 MG/ML VIAL IV PUSH ONE (04:45)
[2017-03-06 07:44] LABS: POTASSIUM 3.5 MEQ/L (3.5-5.1)
[2017-03-06] MEDS: SODIUM CHLOR 0.9% 1000 ML INJ 1,000 ML IV SCH ×2 (08:00→18:00)
[2017-03-06 08:06] LABS: HEMATOCRIT 23.6 % (35.0-46.0); MEAN CELL VOLUME 85.6 FL (80.0-100.0); MEAN CORPUSCULAR HEMOGLOBIN 28.3 PG (27.0-34.0); MEAN CORPUSCULAR HGB CONC 33.1 % (32.0-36.0); PLATELET COUNT 729 TH/MM3 (150-450); RED BLOOD COUNT 2.76 MIL/MM3 (4.00-5.30); RED CELL DISTRIBUTION WIDTH 24.4 % (11.6-17.2); WHITE BLOOD COUNT 13.3 TH/MM3 (4.0-11.0)
[2017-03-06 08:13] LABS: HEMO FLAGS AUTO DIFF
[2017-03-06] MEDS: SODIUM CHLORIDE 0.9% FLUSH 10 ML FLUSH IV FLUSH SCH ×2 (08:40→22:00)
[2017-03-06] MEDS: DOCUSATE SODIUM 50 MG/SENNA 8.6 MG TAB PO SCH ×2 (08:40→21:00)
[2017-03-06 09:06] LABS: BANDS 7 % (0-6); CORRECTED NUCLEATED RBC 1 /100 WBC (0-0); EOSINOPHILS 1 % (0-4); NEUTROPHIL # MANUAL DIFF 7.7 TH/MM3 (1.8-7.7); POLYS (SEG NEUTROPHILS) 51 % (16-70); WBC DIFF SAMPLE 100
[2017-03-06 09:07] LABS: PLATELET ESTIMATE SMEAR HIGH (NORMAL); PLATELET MORPHOLOGY NORMAL (NORMAL); POLYCHROMASIA 2.3 % (0.0-1.9); SCAN/DIFF FINAL DIFF MANUAL; TARGET CELLS 1+ (NORMAL)
[2017-03-06 09:08] LABS: KERATOCYTES OCC (NORMAL); SICKLE CELLS 1+ (NORMAL)
[2017-03-06 12:00] VITALS: BP 100/55; PULSE 69; RESP 16; TEMP 99.1; O2SAT 98
--- NOTE | 2017-03-06 14:13 | HHI.PR ---
Subjective Remarks Follow up sickle cell pain crisis. Patient still having pain in her knees (R>L) and back. Denies chest pain, dyspnea. Objective Vitals Vital Signs Date Time Temp Pulse Resp B/P (MAP) Pulse Ox O2 Delivery O2 Flow Rate FiO2 03/06/17 12:00 99.1 69 16 100/55 (70) 98 03/06/17 05:18 18 03/06/17 03:22 18 03/06/17 00:00 98.2 75 18 105/62 (76) 97 03/05/17 20:00 98.3 72 18 101/64 (76) 99 03/05/17 16:05 98.2 74 18 98/54 (69) 100 I/O 03/05/17 03/05/17 03/05/17 03/06/17 03/06/17 03/06/17 07:00 15:00 23:00 07:00 15:00 23:00 Intake Total 2100 ml 1000 ml 2000 ml 580 ml Output Total 1300 ml Balance 2100 ml 1000 ml 2000 ml -720 ml Intake Oral 480 ml IV Total 2100 ml 1000 ml 2000 ml 100 ml Output Urine Total 1300 ml # Bowel Movements 0 Result Diagram: 03/06/17 0640 03/06/17 0640 Imaging Last Impressions Chest X-Ray 03/05/17 0139 Signed Impressions: Service Date/Time: February 01:48 - CONCLUSION: Normal examination. León Mas MD Objective Remarks The patient was examined in the presence of the nurse. General: No acute distress. Heart: Regular rate and rhythm. No murmur. Lungs: Clear to auscultation bilaterally. No wheezes, rales, or rhonchi. Breathing is nonlabored. Abdomen: Soft, nontender, nondistended. Extremities: No lower extremity edema. Right knee is tender. Psych: Alert and oriented. Procedures None Urinary Catheter: No Vascular Central Line Catheter: No A/P Assessment and Plan 1. Sickle cell pain crisis: Pain is located in her knees and her back. She states that this is the most common location of her pain during sickle cell pain crises. She feels that she is getting better. Continue pain control, IV fluids. Patient is trying to establish with a sampler ovens locally. Will consult hematology. 2. Partially treated UTI: Culture from 03/01/17 shows Klebsiella sensitive to Bactrim, Rocephin. Patient was given Bactrim when discharged from the ER previously, did not take it as prescribed. Continue Rocephin during hospitalization. 3. Thrombocytosis: Platelet count is elevated. Hematology consult. 4. DVT prophylaxis: Lovenox. Discharge Planning Possible discharge home next 1-2 days pending further clinical improvement. Devyn Rogers MD Mar 06, 2017 14:13
[2017-03-06] MEDS: ENOXAPARIN SODIUM 40 MG/0.4 ML SYRINGE SQ SCH (14:50)
[2017-03-06 16:00] VITALS: BP 96/51; PULSE 72; RESP 16; TEMP 98; O2SAT 99
[2017-03-06] MEDS ORDERED: HYDROmorphone HCL PF 2 MG/ML VIAL IV PUSH PRN (20:00)
[2017-03-06 20:28] LABS: TOTAL BILIRUBIN ADULT 1.4 MG/DL (0.2-1.0)
--- NOTE | 2017-03-06 20:29 | MB ---
cc: CORINE ROGERS,KITTY Khan M.D. DATE OF CONSULTATION 03/06/2017 DATE OF [address] Corine Rogers CHIEF COMPLAINT Dr. Rogers requested consultation for Ms. Riggs regarding sickle-cell disease and acute vaso-occlusive pain crises. HISTORY OF PRESENT ILLNESS Ms. Riggs is a 21-year-old woman who is studying at [employer]. Her primary physician locally is Dr. Ash Capps. She is originally from [place]. She has a hematology in [place] who took care of her. 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 She does not know which parent has hemoglobin C. 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 She is on hydroxyurea. She has had history of exchange transfusion before. She has had multiple transfusions before. She denies any acute chest syndrome. She is compliant with her hydroxyurea. She is taking her folic acid prophylactically. She does not take pain medication in between crises episodes. She lapses into acute vaso-occlusive pain crises every 3 months or so. She denies any typical precipitating factors such as menses. She is unable to identify a factor that precipitated her pain crises now. She feels better since her hospitalization. She has pain that is better controlled but less than ideal. She is requesting an increase on her pain medication. She has an elevated bilirubin and thrombocytosis associated with splenectomy. Her hemoglobin has remained stable. Her white blood cell count is trending down, some of this may have been counted nucleated red blood cells. Her retic count is appropriate. LDH is not available. The rest of her review of systems is negative. 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 PAST SURGICAL HISTORY Splenectomy, cholecystectomy. SOCIAL HISTORY Denies any tobacco, alcohol or illicit drug use. 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 ALLERGIES ALLERGIES TO LEVAQUIN. MEDICATIONS From home: 1. Pyridium. 2. [place]. 3. Bactrim. PHYSICAL EXAMINATION VITAL SIGNS: Temperature 98.0, heart rate 72, respiratory rate 16, blood pressure 96/51, saturation 99%. GENERAL: Ms. Riggs is a well-developed, well-nourished woman. HEENT: Her pupils are round, reactive to light and accommodation. Sclerae is mildly icteric. Oropharynx is clear. NECK: Supple. LUNGS: Clear. CARDIOVASCULAR: Exam reveals a normal rate, rhythm. ABDOMEN: Abdomen is benign and flat. There is laparoscopic surgery scars. EXTREMITIES: Lower extremities with no edema. NEUROLOGICAL: Exam is nonfocal. LABORATORY DATA Labs shows thrombocytosis, platelet count 729, hemoglobin 7.8, white blood cell count 13.3. BUN, creatinine are normal. Calcium is decreased at 8.4. ASSESSMENT/PLAN Ms. Riggs is a 21-year-old woman, a student at [employer]. She is admitted for acute vaso-occlusive pain crises. She describes improvement in her pain symptoms since being admitted to the hospital on the . We discussed optimizing her pain medication. I anticipate she should be able to be discharged home to manage her pain at home. She describes that her pain is well-controlled and even nonexistent in between her crises episodes. She is encouraged to follow up with Dr. Ash Capps. We will check hemoglobin electrophoresis, confirm that she is hemoglobin SC disease versus hemoglobin S thal. Clinical management is largely the same. She has no localizing signs of infection. Antibiotics continued for the Klebsiella pneumonia in the urine which is sensitive to other antibiotic therapy that could be continued in place of the ceftriaxone when appropriate. Will see her during the course of her hospitalization. Anticipate discharge and followup on an outpatient basis. Her questions were answered to her satisfaction. MD SCOTTY Riddle/TU /8:01 PM /8:16 PM
[2017-03-06 20:42] VITALS: BP 107/56; PULSE 76; RESP 20; TEMP 99; O2SAT 100
[2017-03-06] MEDS: HYDROmorphone HCL PF 1 MG/ML VIAL IV PUSH SCH (21:56)
[2017-03-06] MEDS: cefTRIAXone INJ 1,000 MG in SODIUM CHLORIDE 0.9% INJ 100 ML IV SCH (21:58)
[2017-03-07] MEDS: HYDROmorphone HCL PF 1 MG/ML VIAL IV PUSH SCH ×4 (01:44→11:49)
[2017-03-07] MEDS: SODIUM CHLOR 0.9% 1000 ML INJ 1,000 ML IV SCH ×3 (01:47→19:23)
[2017-03-07 02:08] VITALS: BP 110/57; PULSE 67; RESP 20; TEMP 98; O2SAT 99
[2017-03-07 07:32] LABS: HEMATOCRIT 21.7 % (35.0-46.0); MEAN CELL VOLUME 85.7 FL (80.0-100.0); MEAN CORPUSCULAR HEMOGLOBIN 30.1 PG (27.0-34.0); MEAN CORPUSCULAR HGB CONC 35.1 % (32.0-36.0); PLATELET COUNT 656 TH/MM3 (150-450); RED BLOOD COUNT 2.53 MIL/MM3 (4.00-5.30); RED CELL DISTRIBUTION WIDTH 25.4 % (11.6-17.2); WHITE BLOOD COUNT 10.9 TH/MM3 (4.0-11.0)
[2017-03-07 07:34] LABS: HEMO FLAGS AUTO DIFF
[2017-03-07 07:48] LABS: BICARBONATE 23.2 MEQ/L (21.0-32.0); POTASSIUM 4.4 MEQ/L (3.5-5.1)
[2017-03-07] MEDS: DOCUSATE SODIUM 50 MG/SENNA 8.6 MG TAB PO SCH ×2 (07:56→19:24)
[2017-03-07] MEDS: SODIUM CHLORIDE 0.9% FLUSH 10 ML FLUSH IV FLUSH SCH ×2 (07:57→19:23)
[2017-03-07 08:00] VITALS: BP 103/57; PULSE 67; RESP 16; TEMP 97.8; O2SAT 99
[2017-03-07 09:19] LABS: BANDS 1 % (0-6); BASOPHILS 2 % (0-2); NEUTROPHIL # MANUAL DIFF 6.3 TH/MM3 (1.8-7.7); PLATELET ESTIMATE SMEAR HIGH (NORMAL); PLATELET MORPHOLOGY NORMAL (NORMAL); POLYS (SEG NEUTROPHILS) 57 % (16-70); SCAN/DIFF FINAL DIFF MANUAL; WBC DIFF SAMPLE 100
[2017-03-07 09:20] LABS: OVALOCYTES 1+ (NORMAL); TARGET CELLS 1+ (NORMAL)
[2017-03-07 09:21] LABS: HOWELL-JOLLY BODIES PRESENT (NONE SEEN)
--- NOTE | 2017-03-07 11:57 | PD.ONC.PN ---
Subjective Subjective Remarks Afebrile overnight. Patient resting in bed. States pain is slightly better today. Still has pain in low back and knees. No chest pain or cough. Objective Data Date Time Temp Pulse Resp B/P (MAP) Pulse Ox O2 Delivery O2 Flow Rate FiO2 03/07/17 08:00 97.8 67 16 103/57 (72) 99 03/07/17 05:23 18 03/07/17 02:08 98.0 67 20 110/57 (74) 99 03/06/17 20:42 99.0 76 20 107/56 (73) 100 03/06/17 16:00 98.0 72 16 96/51 (66) 99 03/06/17 12:00 99.1 69 16 100/55 (70) 98 Result Diagram: 03/07/17 0647 03/07/17 0647 Laboratory Results Laboratory Tests Test 03/07/17 06:47 White Blood Count 10.9 TH/MM3 Red Blood Count 2.53 MIL/MM3 Hemoglobin 7.6 GM/DL Hematocrit 21.7 % Mean Corpuscular Volume 85.7 FL Mean Corpuscular Hemoglobin 30.1 PG Mean Corpuscular Hemoglobin Concent 35.1 % Red Cell Distribution Width 25.4 % Platelet Count 656 TH/MM3 Mean Platelet Volume 8.5 FL CBC Comment AUTO DIFF Differential Total Cells Counted 100 Neutrophils % (Manual) 57 % Band Neutrophils % 1 % Lymphocytes % 35 % Monocytes % 5 % Basophils % 2 % Neutrophils # (Manual) 6.3 TH/MM3 Differential Comment FINAL DIFF MANUAL Platelet Estimate HIGH Platelet Morphology Comment NORMAL Polychromasia 2.0 % Target Cells 1+ Ovalocytes 1+ Li-[place] Bodies PRESENT Red Cell Morphology Comment Blood Urea Nitrogen 3 MG/DL Creatinine 0.36 MG/DL Random Glucose 76 MG/DL Calcium Level 8.4 MG/DL Lactate Dehydrogenase 367 U/L Sodium Level 141 MEQ/L Potassium Level 4.4 MEQ/L Chloride Level 108 MEQ/L Carbon Dioxide Level 23.2 MEQ/L Anion Gap 10 MEQ/L Estimat Glomerular Filtration Rate 278 ML/MIN Culture Results Microbiology Date/Time Source Procedure Growth Status 03/05/17 01:15 Blood Peripheral Aerobic Blood Culture - Preliminary NO GROWTH IN 2 DAYS Resulted 03/05/17 01:15 Blood Peripheral Anaerobic Blood Culture - Final QNS - SEE AEROBE REPORT Resulted 03/05/17 00:55 Blood Peripheral Aerobic Blood Culture - Preliminary NO GROWTH IN 2 DAYS Resulted 03/05/17 00:55 Blood Peripheral Anaerobic Blood Culture - Final QNS - SEE AEROBE REPORT Resulted 03/04/17 22:00 Urine Clean Catch Urine Culture - Final <10,000 CFU/ML GRAM POSITIVE RAMONE Complete Administered Medications Medications (Trade) Dose Ordered Sig/Annalee Route PRN Reason Start Time Stop Time Status Last Admin Dose Admin Sodium Chloride 1,000 ml @ 100 mls/hr Q10H IV 03/05/17 02:00 03/07/17 11:49 Sodium Chloride (NS Flush) 2 ml UNSCH PRN IV FLUSH FLUSH AFTER USING IV ACCESS 03/05/17 01:45 03/05/17 06:51 Sodium Chloride (NS Flush) 2 ml BID IV FLUSH 03/05/17 09:00 03/07/17 07:57 Ondansetron HCl (Zofran Inj) 4 mg Q6H PRN IVP NAUSEA OR VOMITING 03/05/17 01:45 03/05/17 02:35 Senna/Docusate Sodium (Sravanthi-Colace) 1 tab BID PO 03/05/17 09:00 03/07/17 07:56 Ceftriaxone Sodium 1000 mg/ Sodium Chloride 100 ml @ 200 mls/hr Q24H IV 03/05/17 22:00 03/06/17 21:58 Hydromorphone HCl (Dilaudid Pf Inj) 2 mg Q4HR IV PUSH 03/06/17 20:00 03/07/17 11:49 Objective Remarks GENERAL: Young woman, lying in bed watching TV SKIN: Warm and dry. HEAD: Normocephalic. EYES: No injection or drainage. NECK: Supple, trachea midline. CARDIOVASCULAR: Regular rate and rhythm RESPIRATORY: Breath sounds equal bilaterally. No accessory muscle use. GASTROINTESTINAL: Abdomen soft, non-tender, nondistended. EXTREMITIES: No cyanosis NEUROLOGICAL: awake and alert, normal speech. moving all extremities. Assessment/Plan Problem List: (1) Sickle cell crisis ICD Codes: D57.00 - Hb-SS disease with crisis, unspecified Status: Acute Plan: --continue IVF, pain management --hemoglobin SC disease. --on hydroxyurea. --history of exchange transfusion --hemoglobin electrophoresis pending (2) UTI (urinary tract infection) ICD Codes: N39.0 - Urinary tract infection, site not specified Status: Acute Plan: --on antibiotics. Assessment 21y/o female with sickle-cell disease and acute vaso-occlusive pain crises. Plan 1. continue supportive care 2. continue antibiotics 3. face sheet faxed to new patient referrals for follow up upon discharge. Attending Statement The exam, history, and the medical decision-making described in the above note were completed with the assistance of the mid-level provider. I reviewed and agree with the findings presented. I attest that I had a [id number] encounter with the patient on the same day, and personally performed and documented my assessment and findings in the medical record. Pain better controlled, ambulating to prevent DVT. Discussed fu as out patient. Information will be provided. Problem Qualifiers (1) UTI (urinary tract infection): Qualified Codes: N39.0 - Urinary tract infection, site not specified Lola Castellanos Mar 07, 2017 11:57 Mable Sexton MD Mar 07, 2017 19:49
[2017-03-07 12:00] VITALS: BP 108/55; PULSE 71; RESP 17; TEMP 97.7; O2SAT 100
[2017-03-07] MEDS: ENOXAPARIN SODIUM 40 MG/0.4 ML SYRINGE SQ SCH (15:00)
[2017-03-07] MEDS: oxyCODONE/ACETAMINOPHEN 7.5 MG/325 MG TAB PO PRN ×2 (15:44→21:36)
[2017-03-07 16:00] VITALS: BP 106/62; PULSE 74; RESP 16; TEMP 98.1; O2SAT 99
[2017-03-07] MEDS: cefTRIAXone INJ 1,000 MG in SODIUM CHLORIDE 0.9% INJ 100 ML IV SCH (19:24)
[2017-03-07] MEDS: HYDROmorphone HCL PF 2 MG/ML VIAL IV PRN ×2 (19:25→23:28)
[2017-03-07 20:00] VITALS: BP 107/57; PULSE 74; RESP 20; TEMP 98.2; O2SAT 100
[2017-03-08] VITALS: BP 98/44; PULSE 62; RESP 20; TEMP 97.6; O2SAT 97
[2017-03-08] MEDS: HYDROmorphone HCL PF 2 MG/ML VIAL IV PRN ×2 (04:20→08:19)
[2017-03-08] MEDS: SODIUM CHLOR 0.9% 1000 ML INJ 1,000 ML IV SCH ×2 (04:38→14:00)
[2017-03-08 04:49] LABS: HEMATOCRIT 23.4 % (35.0-46.0); MEAN CELL VOLUME 85.8 FL (80.0-100.0); MEAN CORPUSCULAR HEMOGLOBIN 29.2 PG (27.0-34.0); PLATELET COUNT 721 TH/MM3 (150-450); RED BLOOD COUNT 2.73 MIL/MM3 (4.00-5.30); RED CELL DISTRIBUTION WIDTH 24.2 % (11.6-17.2); REVIEW FLAG FINAL; WHITE BLOOD COUNT 8.3 TH/MM3 (4.0-11.0)
[2017-03-08 04:52] LABS: POTASSIUM 4.4 MEQ/L (3.5-5.1)
[2017-03-08] MEDS: oxyCODONE/ACETAMINOPHEN 7.5 MG/325 MG TAB PO PRN (06:04)
[2017-03-08 08:00] VITALS: BP 109/59; PULSE 72; RESP 18; TEMP 99.1; O2SAT 100
[2017-03-08] MEDS: SODIUM CHLORIDE 0.9% FLUSH 10 ML FLUSH IV FLUSH SCH (08:19)
[2017-03-08] MEDS: DOCUSATE SODIUM 50 MG/SENNA 8.6 MG TAB PO SCH (08:19)
--- NOTE | 2017-03-08 11:18 | PD.ONC.PN ---
Subjective Subjective Remarks Afebrile overnight. Patient resting in bed in nad. Feeling much improved today. States she still has some pain in her knees and back but feels she could manage this at home. Objective Data Date Time Temp Pulse Resp B/P (MAP) Pulse Ox O2 Delivery O2 Flow Rate FiO2 03/08/17 08:00 99.1 72 18 109/59 (76) 100 03/08/17 00:00 97.6 62 20 98/44 (62) 97 03/07/17 20:00 98.2 74 20 107/57 (74) 100 03/07/17 16:00 98.1 74 16 106/62 (77) 99 03/07/17 12:00 97.7 71 17 108/55 (72) 100 Result Diagram: 03/08/176 03/08/17415 Laboratory Results Laboratory Tests Test 03/08/17 04:16 White Blood Count 8.3 TH/MM3 Red Blood Count 2.73 MIL/MM3 Hemoglobin 8.0 GM/DL Hematocrit 23.4 % Mean Corpuscular Volume 85.8 FL Mean Corpuscular Hemoglobin 29.2 PG Mean Corpuscular Hemoglobin Concent 34.0 % Red Cell Distribution Width 24.2 % Platelet Count 721 TH/MM3 Mean Platelet Volume 7.9 FL Blood Urea Nitrogen 3 MG/DL Creatinine 0.41 MG/DL Random Glucose 83 MG/DL Calcium Level 8.7 MG/DL Lactate Dehydrogenase 251 U/L Sodium Level 139 MEQ/L Potassium Level 4.4 MEQ/L Chloride Level 107 MEQ/L Carbon Dioxide Level 26.0 MEQ/L Anion Gap 6 MEQ/L Estimat Glomerular Filtration Rate 239 ML/MIN Administered Medications Medications (Trade) Dose Ordered Sig/Annalee Route PRN Reason Start Time Stop Time Status Last Admin Dose Admin Sodium Chloride 1,000 ml @ 125 mls/hr Q8H IV 03/05/17 02:00 03/08/17 04:38 Sodium Chloride (NS Flush) 2 ml UNSCH PRN IV FLUSH FLUSH AFTER USING IV ACCESS 03/05/17 01:45 03/05/17 06:51 Sodium Chloride (NS Flush) 2 ml BID IV FLUSH 03/05/17 09:00 03/07/17 07:57 Ondansetron HCl (Zofran Inj) 4 mg Q6H PRN IVP NAUSEA OR VOMITING 03/05/17 01:45 03/05/17 02:35 Senna/Docusate Sodium (Sravanthi-Colace) 1 tab BID PO 03/05/17 09:00 03/08/17 08:19 Ceftriaxone Sodium 1000 mg/ Sodium Chloride 100 ml @ 200 mls/hr Q24H IV 03/05/17 22:00 03/07/17 19:24 Oxycodone/ Acetaminophen (Percocet 7.5-325 Mg) 1 tab Q4H PRN PO PAIN > 3 03/07/17 12:15 03/08/17 06:04 Hydromorphone HCl (Dilaudid Pf Inj) 2 mg Q4H PRN IV BREAKTHROUGH PAIN 03/07/17 19:00 03/08/17 08:19 Objective Remarks GENERAL: Young woman, sitting up in bed in nad. SKIN: Warm and dry. HEAD: Normocephalic. EYES: No injection or drainage. NECK: Supple, trachea midline. CARDIOVASCULAR: Regular rate and rhythm RESPIRATORY: Breath sounds equal bilaterally. No accessory muscle use. GASTROINTESTINAL: Abdomen soft, non-tender, nondistended. EXTREMITIES: No cyanosis NEUROLOGICAL: No obvious focal deficit. Awake, alert, and oriented x3. Assessment/Plan Problem List: (1) Sickle cell crisis ICD Codes: D57.00 - Hb-SS disease with crisis, unspecified Status: Acute Plan: --IVF, pain management --hemoglobin SC disease. --on hydroxyurea. --history of exchange transfusion --hemoglobin electrophoresis pending (2) UTI (urinary tract infection) ICD Codes: N39.0 - Urinary tract infection, site not specified Status: Acute Plan: --on Rocephin Assessment 21y/o female with sickle-cell disease and acute vaso-occlusive pain crises. Plan 1. hematology clear for discharge 2. follow up with Dr. sexton once discharged. Attending Statement The exam, history, and the medical decision-making described in the above note were completed with the assistance of the mid-level provider. I reviewed and agree with the findings presented. I attest that I had a [id number] encounter with the patient on the same day, and personally performed and documented my assessment and findings in the medical record. No complaints, feeling well. FU as out pt. Problem Qualifiers (1) UTI (urinary tract infection): Qualified Codes: N39.0 - Urinary tract infection, site not specified Lola Castellanos Mar 08, 2017 11:18 Mable Sexton MD Mar 08, 2017 14:31
[2017-03-08] MEDS: ENOXAPARIN SODIUM 40 MG/0.4 ML SYRINGE SQ SCH (11:41)
[2017-03-08 12:00] VITALS: BP 101/55; PULSE 82; RESP 17; TEMP 97.7; O2SAT 100
[2017-03-08] MEDS ORDERED: OXYC1TAB35 PO (12:34)
--- NOTE | 2017-03-08 12:34 | HHI.DCPOC ---
Discharge Care Plan Diagnosis: (1) Sickle cell crisis (2) SIRS (systemic inflammatory response syndrome) Goals to Promote Your Health * To prevent worsening of your condition and complications * To maintain your health at the optimal level Directions to Meet Your Goals Take your medications as prescribed Follow your dietary instruction Follow activity as directed Keep your appointments as scheduled Take your immunizations and boosters as scheduled If your symptoms worsen call your PCP, if no PCP go to Urgent Care Center or Emergency Room Smoking is Dangerous to Your Health. Avoid second hand smoke Call the 24-hour hour crisis hotline for domestic abuse at Uma López MD Mar 08, 2017 12:34
--- NOTE | 2017-03-08 12:35 | HHI.PR ---
Subjective Remarks Progress note for 03/07/17. Patient seen around 10 AM Patient reports her pain is better. She is still requiring IV pain medication. She is willing to try oral pain medications. Objective Vitals Vital Signs Date Time Temp Pulse Resp B/P (MAP) Pulse Ox O2 Delivery O2 Flow Rate FiO2 03/08/17 08:00 99.1 72 18 109/59 (76) 100 03/08/17 00:00 97.6 62 20 98/44 (62) 97 03/07/17 20:00 98.2 74 20 107/57 (74) 100 03/07/17 16:00 98.1 74 16 106/62 (77) 99 I/O 03/07/17 03/07/17 03/07/17 03/08/17 03/08/17 03/08/17 07:00 15:00 23:00 07:00 15:00 23:00 Intake Total 2250 ml Balance 2250 ml Intake Oral 1250 ml IV Total 1000 ml # Voids 6 # Bowel Movements 1 Result Diagram: 03/08/17 0416 03/08/17 0416 Imaging Last Impressions Chest X-Ray 03/05/17 0139 Signed Impressions: Service Date/Time: February 01:48 - CONCLUSION: Normal examination. León Mas MD Objective Remarks GENERAL: This is a well-nourished, well-developed patient, in no apparent distress. CARDIOVASCULAR: Normal rate and regular rhythm without murmurs, gallops, or rubs. RESPIRATORY: Good respiratory efforts. Breath sounds equal and clear to auscultation bilaterally. GASTROINTESTINAL: Abdomen soft, non-tender, non-distended. Normal active bowel sounds MUSCULOSKELETAL: Reports some discomfort in bilateral knees. NEURO: Alert & Oriented x4 to person, place, time, situation. Moves all ext x4 PSYCH: Appropriate mood and affect. Procedures None A/P Assessment and Plan 21-year-old female admitted with sickle cell pain crisis and abnormal urinalysis. Sickle cell pain crisis Pain is improving. Start transitioning to oral with Percocet. Keep Dilaudid IV for breakthrough. Partially treated UTI: - Continue Rocephin. Discharge Planning Plan to discharge tomorrow if pain is controlled on oral medications. Uma López MD Mar 08, 2017 12:35
--- NOTE | 2017-03-08 12:35 | HHI.DS ---
Discharge Summary Admission Date Mar 05, 2017 at 02:06 Discharge Date: Mar 08, 2017 Admitting Diagnosis SIRS, UTI, sickle cell pain crisis (1) UTI (urinary tract infection) ICD Code: N39.0 - Urinary tract infection, site not specified (2) Vaso-occlusive sickle cell crisis ICD Code: D57.00 - Hb-SS disease with crisis, unspecified Procedures None Brief History - From Admission History of present illness from the admitting physician 21-year-old female with a past medical history significant for sickle cell disease presents with a sickle cell pain crisis. The patient reports she has pain in her bilateral lower extremities, worse in the knees. She does not have any lower extremity swelling or joint effusions. She sees Dr. Ash Sultana as her PCP and is in the process of getting established with the molecular technologist. The patient reports her pain is typical for her pain crisis. It is improved with Dilaudid. She denies any chest pain, tightness or shortness of breath. Chest x-ray within normal limits. Patient was recently seen in the ED on 03/01 she was treated for her pain crisis and found to have a urinary tract infection. The patient was given 1 g of Rocephin and discharged to home with Bactrim. Urine culture positive for Klebsiella, sensitive to Bactrim. The patient did not take her Bactrim as prescribed and reports only taking 1 pill since she was discharged. She denies any symptoms of dysuria. Labs significant for a leukocytosis of 23.5. Lactic acid 1.6. UA shows large leukocyte esterase with 77 WBCs. CBC/BMP: 03/08/17 0416 03/08/17 0416 Significant Findings Laboratory Tests Test 03/06/17 06:40 03/06/17 06:46 03/07/17 06:47 03/08/17 04:16 White Blood Count 13.3 TH/MM3 (4.0-11.0) Red Blood Count 2.76 MIL/MM3 (4.00-5.30) 2.53 MIL/MM3 (4.00-5.30) 2.73 MIL/MM3 (4.00-5.30) Hemoglobin 7.8 GM/DL (11.6-15.3) 7.6 GM/DL (11.6-15.3) 8.0 GM/DL (11.6-15.3) Hematocrit 23.6 % (35.0-46.0) 21.7 % (35.0-46.0) 23.4 % (35.0-46.0) Red Cell Distribution Width 24.4 % (11.6-17.2) 25.4 % (11.6-17.2) 24.2 % (11.6-17.2) Platelet Count 729 TH/MM3 (150-450) 656 TH/MM3 (150-450) 721 TH/MM3 (150-450) Band Neutrophils % 7 % (0-6) Monocytes % 14 % (0-8) Nucleated Red Blood Cells 1 /100 WBC (0-0) Platelet Estimate HIGH (NORMAL) HIGH (NORMAL) Polychromasia 2.3 % (0.0-1.9) 2.0 % (0.0-1.9) Sickle Cells 1+ (NORMAL) Target Cells 1+ (NORMAL) 1+ (NORMAL) Keratocytes OCC (NORMAL) Blood Urea Nitrogen 3 MG/DL (7-18) 3 MG/DL (7-18) 3 MG/DL (7-18) Creatinine 0.45 MG/DL (0.50-1.00) 0.36 MG/DL (0.50-1.00) 0.41 MG/DL (0.50-1.00) Calcium Level 8.4 MG/DL (8.5-10.1) 8.4 MG/DL (8.5-10.1) Chloride Level 109 MEQ/L (98-107) 108 MEQ/L (98-107) Total Bilirubin 1.4 MG/DL (0.2-1.0) Direct Bilirubin 0.4 MG/DL (0.0-0.2) Indirect Bilirubin 1.0 MG/DL (0.0-0.8) Ovalocytes 1+ (NORMAL) Lactate Dehydrogenase 367 U/L (84-246) 251 U/L (84-246) Imaging Last Impressions Chest X-Ray 03/05/17 0139 Signed Impressions: Service Date/Time: February 01:48 - CONCLUSION: Normal examination. León A. Sevigny, MD PE at Discharge The patient was examined in the presence of the nurse. General: No acute distress. Heart: Regular rate and rhythm. No murmur. Lungs: Clear to auscultation bilaterally. No wheezes, rales, or rhonchi. Breathing is nonlabored. Abdomen: Soft, nontender, nondistended. Extremities: No lower extremity edema. Right knee is tender. Psych: Alert and oriented. Pt update on day of discharge Patient reports she is feeling much better. Pain is controlled on oral medications. She wants to go home. Hospital Course 21-year-old female admitted with sickle cell pain crisis and partially treated UTI. Patient was admitted and treated with hypotonic IV fluid. Pain was managed with Percocet and Dilaudid. Her symptoms improved. She completed treatment for UTI with Rocephin. She is discharged home in good condition. Patient is advised to follow-up outpatient with hematology. Pt Condition on Discharge: Good Discharge Disposition: Discharge Home Discharge Time: <= 30 minutes Discharge Instructions DIET: Follow Instructions for: As Tolerated, No Restrictions Activities you can perform: Regular-No Restrictions Follow up Referrals: Oncology Oncology/Hematology - 1 Week with Mable Sexton MD New Medications: Oxycodone HCl/Acetaminophen (Oxycodon-Acetaminophen 7.5-325) 7.5 Mg-325 Mg Tablet 1 TAB PO Q4H PRN for PAIN > 3, #20 Discontinued Medications: Hydrocodone-Acetaminophen ([place]) 5 Mg-325 Mg Tab 1 TAB PO Q4H PRN for PAIN, #8 TAB 0 Refills Phenazopyridine (Pyridium) 100 Mg Tab 100 MG PO Q8H PRN for DYSURIA for 3 Days, #9 TAB 0 Refills Sulfamethoxazole-Trimethoprim (Bactrim DS) 800-160 Mg Tab 1 TAB PO BID for Infection for 7 Days, #14 TAB 0 Refills Uma López MD Mar 08, 2017 12:35
== END 2017-03-08 14:10 | disposition home or self-care (01) | DRG 812 ==
LOC: NEPE 21:14 → NEDA 03-05 01:36 → OBSVTOIN 03-05 02:06 → NEPFCDU 03-05 02:55 → N07B 03-05 16:46
PROVIDERS: ADMIT Family Medicine; ATTEND Family Medicine
DX: D57.219 Sickle-cell/Hb-C disease with crisis, unspecified (principal); N39.0 Urinary tract infection, site not specified; Z90.81 Acquired absence of spleen; B96.1 Klebsiella pneumoniae [K. pneumoniae] as the cause of diseases classified elsewhere; R79.89 Other specified abnormal findings of blood chemistry
CPT/HCPCS: 71010; 80048; 80053; 81001; 82247; 82248; 82948; 83020; 83605; 83615; 85007; 85027; 85044; 87040; 87086; 96374; 96376; J0696; J1170; J2270; J2405; J7030

== ENCOUNTER 2017-05-19 01:15 | Emergency (ER) | payer OTHER ==
[~2017-05-19] VITALS: Ht 182.9 cm; Wt 73.0 kg
[~2017-05-19 01:15] MED LIST changes: -BACT800T5 PO; -NORC5TAB PO; +OXYC1TAB35 PO; -PHEN0.4T PO
[2017-05-19 01:16] VITALS: BP 105/57; PULSE 106; RESP 16; TEMP 97.7; O2SAT 97
== END 2017-05-19 02:39 | disposition left against medical advice (07) ==
LOC: NED 01:15
DX: D57.1 Sickle-cell disease without crisis (principal)
CPT/HCPCS: 99281

== ENCOUNTER 2017-05-19 04:42 | Inpatient (IN) | payer OTHER ==
[2017-05-19] VITALS (8 sets, daily range): BP systolic 110–118; BP diastolic 56–61; PULSE 88–107; RESP 16–20; TEMP 98–100; O2SAT 90–99
[~2017-05-19] VITALS: Ht 182.9 cm; Wt 71.4 kg
[2017-05-19] MEDS ORDERED: SODIUM CHLORIDE 0.9% FLUSH 10 ML FLUSH IVF PRN (05:15)
--- NOTE | 2017-05-19 05:23 | PD ---
HPI Chief Complaint: Sickle Cell Time Seen by Provider: 05:06 Travel History International Travel<30 days: No Contact w/Intl Traveler<30days: No Traveled to known affect area: No History of Present Illness HPI 22-year-old female presents to the emergency department for complaint of sickle cell crisis. Patient states 2 days ago she started feeling poorly with her typical back pain which is progressively worsened. Patient also reportedly had fever. Patient denies any generalized myalgias or arthralgias. Patient did not have flu vaccine. No report of sore throat chest pain or shortness of breath. No nausea or vomiting abdominal cramping. Last period was normal for her but states she does not use any type of contraception does not know if she is or not. Denies any dysuria frequency urgency or flank pain. Patient states that her pain is severe. Patient does not take chronic suppressive pain medication. Patient is followed by primary Dr. Ash Capps and has been seen in consultation before by Dr. Sexton. Last crisis was in 2016. PFSH Past Medical History Narrative Medical Sickle cell splenectomy cholecystectomy no tobacco use nursing notes reviewed Blood Disorders: No Cancer: No Cardiovascular Problems: Yes (sickle cell) Chemotherapy: No Diabetes: No Diminished Hearing: No Endocrine: Yes Genitourinary: No Musculoskeletal: No Neurologic: No Psychiatric: No Reproductive: No Respiratory: No Radiation Therapy: No Sickle Cell Disease: Yes Thyroid Disease: No Tetanus Vaccination: Unknown Influenza Vaccination: No ?: Unknown Past Surgical History Abdominal Surgery: Yes (spleena dn gallbladder removal) Cholecystectomy: Yes Other Surgery: Yes Social History Alcohol Use: No Tobacco Use: No Substance Use: No Allergies-Medications (Allergen,Severity, Reaction): Coded Allergies: levofloxacin (Verified Allergy, Unknown, 05/19/17) Reported Meds & Prescriptions Reported Meds & Active Scripts Active Oxycodon-Acetaminophen 7.5-325 (Oxycodone HCl/Acetaminophen) 7.5 Mg-325 Mg Tablet 1 Tab PO Q4H PRN Review of Systems Except as stated in HPI: all other systems reviewed are Neg General / Constitutional: Positive: Fever HENT: No: Sore Throat, Congestion Cardiovascular: No: Chest Pain or Discomfort Respiratory: No: Shortness of Breath Gastrointestinal: No: Nausea, Vomiting, Abdominal Pain Genitourinary: Positive: Flank Pain Musculoskeletal: Positive: Myalgias, Arthralgias Skin: No Rash Neurologic: No: Weakness Psychiatric: Positive: Anxiety Hematologic/Lymphatic: No: Lymph Node Enlargement Physical Exam Narrative GENERAL: Well-developed well-nourished female in apparent discomfort no respiratory distress SKIN: Warm and dry. HEAD: Normocephalic. EYES: No scleral icterus. No injection or drainage. NECK: Supple, trachea midline. No JVD or lymphadenopathy. CARDIOVASCULAR: Increased Regular rate and rhythm without murmurs, gallops, or rubs. RESPIRATORY: Breath sounds equal bilaterally. No accessory muscle use. GASTROINTESTINAL: Abdomen soft, non-tender, nondistended. MUSCULOSKELETAL: No cyanosis, or edema. BACK: Nontender without obvious deformity. Bilateral CVA tenderness. Data Data Last Documented VS Vital Signs Date Time Temp Pulse Resp B/P (MAP) Pulse Ox O2 Delivery O2 Flow Rate FiO2 05/19/17 04:43 98.0 92 16 118/56 (76) 95 Room Air Orders Orders C-Reactive Protein (Crp) (05/19/17 05:06) Complete Blood Count With Diff (05/19/17 05:06) Comprehensive Metabolic Panel (05/19/17 05:06) Retic Count (05/19/17 05:06) Urinalysis - C+S If Indicated (05/19/17 05:06) Chest, Single Ap (05/19/17 05:06) Ecg Monitoring (05/19/17 05:06) Iv Access Insert/Monitor (05/19/17 05:06) Oximetry (05/19/17 05:06) Sodium Chloride 0.9% Flush (Ns Flush) (05/19/17 05:15) Ed Urine Pregnancytest Poc (05/19/17 05:06) Sodium Chlor 0.9% 1000 Ml Inj (Ns 1000 M (05/19/17 05:30) Sodium Chlor 0.9% 1000 Ml Inj (Ns 1000 M (05/19/17 05:30) Ondansetron Inj (Zofran Inj) (05/19/17 05:30) Hydromorphone Pf Inj (Dilaudid Pf Inj) (05/19/17 05:30) Diphenhydramine Inj (Benadryl Inj) (05/19/17 05:30) MDM Medical Decision Making Medical Screen Exam Complete: Yes Emergency Medical Condition: Yes Medical Record Reviewed: Yes Differential Diagnosis Sickle-cell anemia, vaso-occlusive crisis, UTI, sepsis, influenza, Narrative Course IV access obtained specimens collected and sent for resulting patient administered bolus of normal saline along with Dilaudid 1 mg IV Benadryl 25 mg IV and Zofran 4 mg IV Diagnosis Primary Impression: Vaso-occlusive sickle cell crisis Jessica Doherty MD May 19, 2017 05:23
[2017-05-19] MEDS ORDERED: SODIUM CHLOR 0.9% 1000 ML INJ 1,000 ML IV ONE ×2 (05:30)
[2017-05-19] MEDS ORDERED: HYDROmorphone HCL PF 2 MG/ML VIAL IV PUSH ONE (05:30)
[2017-05-19] MEDS ORDERED: ONDANSETRON HCL 4 MG/2 ML VIAL IV PUSH ONE (05:30)
[2017-05-19] MEDS ORDERED: HYDROmorphone HCL PF 1 MG/ML VIAL IV PUSH ONE (05:30)
[2017-05-19] MEDS ORDERED: diphenhydrAMINE HCL 50 MG/ML VIAL IV PUSH ONE (05:30)
[2017-05-19 05:37] LABS: AUTOMATED NEUTROPHIL # 15.1 TH/MM3 (1.8-7.7); BASOPHIL # 0.2 TH/MM3 (0-0.2); EOSINOPHIL # 0.2 TH/MM3 (0-0.4); EOSINOPHIL % 0.8 % (0.0-4.0); HEMATOCRIT 22.5 % (35.0-46.0); HEMOGLOBIN 7.9 GM/DL (11.6-15.3); LYMPHOCYTE # 5.5 TH/MM3 (1.0-4.8); MEAN CELL VOLUME 80.5 FL (80.0-100.0); MEAN CORPUSCULAR HEMOGLOBIN 28.3 PG (27.0-34.0); MEAN CORPUSCULAR HGB CONC 35.1 % (32.0-36.0); MEAN PLATELET VOLUME 7.6 FL (7.0-11.0); MONO % 5.4 % (0.0-8.0); MONOCYTE # 1.2 TH/MM3 (0-0.9); NEUT % 67.8 % (16.0-70.0); PLATELET COUNT 770 TH/MM3 (150-450); RED BLOOD COUNT 2.79 MIL/MM3 (4.00-5.30); RETIC # 243.6 MIL/L (20.0-150.0); RETIC % 8.7 % (0.4-3.0); WHITE BLOOD COUNT 22.2 TH/MM3 (4.0-11.0)
--- NOTE | 2017-05-19 05:48 | RADRPT ---
EXAM DATE/TIME: 05/19/2017 05:36 [facility] COMPARISON: CHEST SINGLE AP, March 05, 2017, 1:48. INDICATIONS : Short of breath. MEDICAL HISTORY : Sickle Cell disease. SURGICAL HISTORY : None. ENCOUNTER: Initial ACUITY: 1 day PAIN SCORE: Non-responsive. LOCATION: Bilateral chest FINDINGS: A single view of the chest demonstrates cardiac enlargement. No airspace disease bilaterally, left gr eater than right increased from March 05. No significant effusion. No pneumothorax. CONCLUSION: 1. Cardiomegaly with new mild fairly diffuse airspace disease on the left and to lesser extent the ri ght lung base. Niels Guzman MD on May 19, 2017 at 5:44 Board Certified Radiologist. This report was verified electronically.
[2017-05-19 05:56] LABS: ALBUMIN 5.1 GM/DL (3.4-5.0); ALT (GPT) 15 U/L (10-53); AST (GOT) 17 U/L (15-37); BICARBONATE 24.3 MEQ/L (21.0-32.0); BLOOD UREA NITROGEN 4 MG/DL (7-18); CALCIUM 9.4 MG/DL (8.5-10.1); CHLORIDE 101 MEQ/L (98-107); CREATININE 0.62 MG/DL (0.50-1.00); GLOMERULAR FILTRATION RATE 147 ML/MIN (>89); GLUCOSE,RANDOM 114 MG/DL (74-106); SODIUM (NA) 138 MEQ/L (136-145)
[2017-05-19 05:59] LABS: ALKALINE PHOSPHATASE 121 U/L (45-117); TOTAL BILIRUBIN ADULT 3.9 MG/DL (0.2-1.0); TOTAL PROTEIN 8.7 GM/DL (6.4-8.2)
[2017-05-19 06:48] LABS: SICKLE CELLS 1+ (NORMAL); TARGET CELLS 1+ (NORMAL)
[2017-05-19] MEDS ORDERED: POTASSIUM CHLORIDE 20 MEQ CONTROLLED RELEASE TAB PO ONE (07:30)
[2017-05-19] MEDS ORDERED: diphenhydrAMINE HCL 25 MG CAP PO PRN (08:00)
[2017-05-19] MEDS ORDERED: ONDANSETRON HCL 4 MG/2 ML VIAL IV PUSH PRN (08:00)
[2017-05-19] MEDS ORDERED: ACETAMINOPHEN 325 MG TAB PO PRN (08:00)
--- NOTE | 2017-05-19 08:02 | PD ---
Physical Exam Date Seen by Provider: May 19, 2017 Time Seen by Provider: 07:58 Narrative 22 year old female came to the emergency room with history of low back pain. Patient has history of sickle cell disease. She was seen by the previous ER physician. Please refer to her history and physical for further details. Patient was given IV fluid and pain medication. Blood test results are back and potassium is slightly low. She was given by mouth replacement. UA is still pending. Patient does have history of UTIs in the past. Previous physician was concerned for vaso-occlusive crisis and wanted the patient to be admitted. The sign out was to speak with the admitting physician for admission. I spoke with the hospitalist with accepted the case. During the conversation the chest x-ray report came back which shows new density in the right lung. He mentioned that he would order Zithromax for the patient. Data Data Last Documented VS Vital Signs Date Time Temp Pulse Resp B/P (MAP) Pulse Ox O2 Delivery O2 Flow Rate FiO2 05/19/17 06:39 16 05/19/17 04:43 98.0 92 118/56 (76) 95 Room Air Orders Orders C-Reactive Protein (Crp) (05/19/17 05:06) Complete Blood Count With Diff (05/19/17 05:06) Comprehensive Metabolic Panel (05/19/17 05:06) Retic Count (05/19/17 05:06) Urinalysis - C+S If Indicated (05/19/17 05:06) Chest, Single Ap (05/19/17 05:06) Ecg Monitoring (05/19/17 05:06) Iv Access Insert/Monitor (05/19/17 05:06) Oximetry (05/19/17 05:06) Sodium Chloride 0.9% Flush (Ns Flush) (05/19/17 05:15) Ed Urine Pregnancytest Poc (05/19/17 05:06) Sodium Chlor 0.9% 1000 Ml Inj (Ns 1000 M (05/19/17 05:30) Sodium Chlor 0.9% 1000 Ml Inj (Ns 1000 M (05/19/17 05:30) Ondansetron Inj (Zofran Inj) (05/19/17 05:30) Diphenhydramine Inj (Benadryl Inj) (05/19/17 05:30) Hydromorphone Pf Inj (Dilaudid Pf Inj) (05/19/17 05:30) Potassium Chloride (Kcl) (05/19/17 07:30) Cath For Specimen (05/19/17 07:19) Admit To Inpatient (05/19/17 ) Vital Signs (Adult) Q4H (05/19/17 07:54) Activity Oob Ad Prema (05/19/17 07:54) Cement Sprayer Helper / Telemetry MARGARITA.Q8H (05/19/17 07:54) Diet Regular Basic (05/19/17 Breakfast) Sodium Chloride 0.9% Flush (Ns Flush) (05/19/17 08:00) Sodium Chloride 0.9% Flush (Ns Flush) (05/19/17 09:00) Morphine Inj (Morphine Inj) (05/19/17 08:00) Morphine Inj (Morphine Inj) (05/19/17 08:00) Ondansetron Inj (Zofran Inj) (05/19/17 08:00) Acetaminophen (Tylenol) (05/19/17 08:00) Folic Acid (Folate) (05/19/17 09:00) Multivitamin (Theragran) (05/19/17 09:00) Diphenhydramine (Benadryl) (05/19/17 08:00) Complete Blood Count With Diff (05/20/17 06:00) Ldh Serum (05/19/17 07:54) Resp Incentive Spirometry (05/19/17 ) Resp Oxygen Facundo C Titrat 1-4 L (05/19/17 ) Scd Bilateral/Knee High MARGARITA.BID (05/19/17 07:54) Inpatient Certification (05/19/17 ) Water Sterile For I... W/Potassium Chlor (05/19/17 09:00) Troponin I (05/19/17 07:54) Consult Hematology (05/19/17 ) Admit Order (Ed Use Only) (05/19/17 08:02) Labs Laboratory Tests Test 05/19/17 05:20 05/19/17 07:45 White Blood Count 22.2 TH/MM3 Red Blood Count 2.79 MIL/MM3 Hemoglobin 7.9 GM/DL Hematocrit 22.5 % Mean Corpuscular Volume 80.5 FL Mean Corpuscular Hemoglobin 28.3 PG Mean Corpuscular Hemoglobin Concent 35.1 % Red Cell Distribution Width 26.0 % Platelet Count 770 TH/MM3 Mean Platelet Volume 7.6 FL Neutrophils (%) (Auto) 67.8 % Lymphocytes (%) (Auto) 25.0 % Monocytes (%) (Auto) 5.4 % Eosinophils (%) (Auto) 0.8 % Basophils (%) (Auto) 1.0 % Neutrophils # (Auto) 15.1 TH/MM3 Lymphocytes # (Auto) 5.5 TH/MM3 Monocytes # (Auto) 1.2 TH/MM3 Eosinophils # (Auto) 0.2 TH/MM3 Basophils # (Auto) 0.2 TH/MM3 CBC Comment AUTO DIFF Differential Comment AUTO DIFF CONFIRMED Platelet Estimate HIGH Platelet Morphology Comment NORMAL Polychromasia 2.0 % Sickle Cells 1+ Target Cells 1+ Reticulocyte Count 8.7 % Absolute Reticulocyte Count 243.6 MIL/L Blood Urea Nitrogen 4 MG/DL Creatinine 0.62 MG/DL Random Glucose 114 MG/DL Total Protein 8.7 GM/DL Albumin 5.1 GM/DL Calcium Level 9.4 MG/DL Alkaline Phosphatase 121 U/L Aspartate Amino Transf (AST/SGOT) 17 U/L Alanine Aminotransferase (ALT/SGPT) 15 U/L Total Bilirubin 3.9 MG/DL Sodium Level 138 MEQ/L Potassium Level 3.0 MEQ/L Chloride Level 101 MEQ/L Carbon Dioxide Level 24.3 MEQ/L Anion Gap 13 MEQ/L Estimat Glomerular Filtration Rate 147 ML/MIN Lactate Dehydrogenase 351 U/L Troponin I LESS THAN 0.02 NG/ML C-Reactive Protein 2.90 MG/DL Urine Color LIGHT-YELLOW Urine Turbidity CLEAR Urine pH 6.0 Urine Specific [place] 1.003 Urine Protein TRACE mg/dL Urine Glucose (UA) NEG mg/dL Urine Ketones NEG mg/dL Urine Occult Blood TRACE Urine Nitrite NEG Urine Bilirubin NEG Urine Urobilinogen LESS THAN 2.0 MG/DL Urine Leukocyte Esterase LARGE Urine RBC 1 /hpf Urine WBC 31 /hpf Urine WBC Clumps OCC Microscopic Urinalysis Comment CULTURE INDICATED Urine Opiates Screen NEG Urine Barbiturates Screen NEG Urine Amphetamines Screen NEG Urine Benzodiazepines Screen NEG Urine Cocaine Screen NEG Urine Cannabinoids Screen POS MDM Supervised Visit with AARON: No Diagnosis Primary Impression: Vaso-occlusive sickle cell crisis Additional Impression: Lung density on x-ray Admitting Information Admitting Physician Requests: Admit Rach Dominiquenti R. MD May 19, 2017 08:02
[2017-05-19 08:05] LABS: BILIRUBIN, URINE NEG (NEG); BLOOD, URINE TRACE (NEG); GLUCOSE,URINE NEG (NEG); KETONE, URINE NEG (NEG); NITRITE,URINE NEG (NEG); URINE COLOR LIGHT-YELLOW (YELLW/STRAW); URINE LEUKOCYTE ESTERASE LARGE (NEG); WHITE BLOOD CELL CLUMPS OCC
[2017-05-19] MEDS ORDERED: cefTRIAXone INJ 1,000 MG in SODIUM CHLORIDE 0.9% INJ 100 ML IV ONE (08:15)
[2017-05-19] MEDS ORDERED: AZITHROMYCIN INJ 500 MG in SODIUM CHLOR 0.9% 250 ML INJ 250 ML IV ONE (08:15)
[2017-05-19] MEDS: MORPHINE SULFATE 8 MG/ML INJ IV PUSH PRN ×4 (08:40→22:50)
[2017-05-19 08:42] LABS: TROPONIN I LESS THAN 0.02 NG/ML (0.02-0.05)
[2017-05-19] MEDS: FOLIC ACID 1 MG TAB PO SCH (09:00)
[2017-05-19] MEDS ORDERED: POTASSIUM CHLORIDE INJ 20 MEQ, SODIUM CHLORIDE 23.4% INJ 38.5 MEQ in WATER STERILE FOR ... IV SCH (09:00)
[2017-05-19] MEDS: MULTIVITAMIN TAB PO SCH (09:00)
[2017-05-19] MEDS: SODIUM CHLORIDE 0.9% FLUSH 10 ML FLUSH IV FLUSH SCH ×2 (09:00→20:03)
--- NOTE | 2017-05-19 10:29 | HHI.HP ---
HPI Service [facility] Primary Care Physician Unknown Admission Diagnosis sickle cell pain crisis, lung density Diagnoses: Chief Complaint: Back and leg pain Travel History International Travel<30 Days: No Contact w/Intl Traveler <30 Da: No Traveled to Known Affected Are: No History of Present Illness 22-year-old female with a medical history significant for sickle cell presented to the emergency room with concern for sickle cell crisis. Patient reports for the past 2 days she has been feeling bad with diffuse pain all over her back and legs. She also endorsed chest congestion, cough, and chest pain. She states that she has been trying to stay hydrated. She reports subjective fevers. She denies any dysuria, urinary frequency, or suprapubic pain. Workup in the emergency room revealed abnormal urinalysis. Her chest x-ray is concerning for pneumonia versus acute chest syndrome. Review of Systems Constitutional: COMPLAINS OF: Fever, Chills Respiratory: COMPLAINS OF: Cough, Shortness of breath Cardiovascular: COMPLAINS OF: Chest pain Genitourinary: DENIES: Dysuria Musculoskeletal: COMPLAINS OF: Muscle aches, Back pain Except as stated in HPI: all other systems reviewed are Neg Past Family Social History Past Medical History Sickle cell disease Past Surgical History Cholecystectomy Splenectomy Reported Medications Reported Meds & Active Scripts Active Oxycodon-Acetaminophen 7.5-325 (Oxycodone HCl/Acetaminophen) 7.5 Mg-325 Mg Tablet 1 Tab PO Q4H PRN Allergies: Coded Allergies: levofloxacin (Verified Allergy, Unknown, 05/19/17) Family History Discussed and found to be noncontributory Social History No tobacco or alcohol but tested positive for marijuana. Physical Exam Vital Signs Vital Signs Date Time Temp Pulse Resp B/P (MAP) Pulse Ox O2 Delivery O2 Flow Rate FiO2 05/19/17 08:57 88 18 115/61 (79) 97 Room Air 05/19/17 06:39 16 05/19/17 04:43 98.0 92 16 118/56 (76) 95 Room Air Physical Exam GENERAL: This is a well-nourished, well-developed patient, in no apparent distress. SKIN: No rashes, ecchymoses or lesions. Cool and dry. HEAD: Atraumatic. Normocephalic. No temporal or scalp tenderness. EYES: Pupils equal round and reactive. Extraocular motions intact. No scleral icterus. No injection or drainage. ENT: Nose without bleeding, purulent drainage or septal hematoma. Throat without erythema, tonsillar hypertrophy or exudate. Uvula midline. Airway patent. NECK: Trachea midline. No JVD or lymphadenopathy. Supple, nontender, no meningeal signs. CARDIOVASCULAR: Regular rate and rhythm without murmurs, gallops, or rubs. RESPIRATORY: Clear to auscultation. Breath sounds equal bilaterally. No wheezes , rales, or rhonchi. GASTROINTESTINAL: Abdomen soft, non-tender, nondistended. No hepato-splenomegaly , or palpable masses. No guarding. MUSCULOSKELETAL: Extremities without clubbing, cyanosis, or edema. No joint tenderness, effusion, or edema noted. No calf tenderness. Negative Homans sign bilaterally. NEUROLOGICAL: Awake and alert. Cranial nerves II through XII intact. Motor and sensory grossly within normal limits. Five out of 5 muscle strength in all muscle groups. Normal speech. Laboratory Laboratory Tests Test 05/19/17 05:20 05/19/17 07:45 White Blood Count 22.2 Red Blood Count 2.79 Hemoglobin 7.9 Hematocrit 22.5 Mean Corpuscular Volume 80.5 Mean Corpuscular Hemoglobin 28.3 Mean Corpuscular Hemoglobin Concent 35.1 Red Cell Distribution Width 26.0 Platelet Count 770 Mean Platelet Volume 7.6 Neutrophils (%) (Auto) 67.8 Lymphocytes (%) (Auto) 25.0 Monocytes (%) (Auto) 5.4 Eosinophils (%) (Auto) 0.8 Basophils (%) (Auto) 1.0 Neutrophils # (Auto) 15.1 Lymphocytes # (Auto) 5.5 Monocytes # (Auto) 1.2 Eosinophils # (Auto) 0.2 Basophils # (Auto) 0.2 CBC Comment AUTO DIFF Differential Comment AUTO DIFF CONFIRMED Platelet Estimate HIGH Platelet Morphology Comment NORMAL Polychromasia 2.0 Sickle Cells 1+ Target Cells 1+ Reticulocyte Count 8.7 Absolute Reticulocyte Count 243.6 Blood Urea Nitrogen 4 Creatinine 0.62 Random Glucose 114 Total Protein 8.7 Albumin 5.1 Calcium Level 9.4 Alkaline Phosphatase 121 Aspartate Amino Transf (AST/SGOT) 17 Alanine Aminotransferase (ALT/SGPT) 15 Total Bilirubin 3.9 Sodium Level 138 Potassium Level 3.0 Chloride Level 101 Carbon Dioxide Level 24.3 Anion Gap 13 Estimat Glomerular Filtration Rate 147 Lactate Dehydrogenase 351 Troponin I LESS THAN 0.02 C-Reactive Protein 2.90 Urine Color LIGHT-YELLOW Urine Turbidity CLEAR Urine pH 6.0 Urine Specific [place] 1.003 Urine Protein TRACE Urine Glucose (UA) NEG Urine Ketones NEG Urine Occult Blood TRACE Urine Nitrite NEG Urine Bilirubin NEG Urine Urobilinogen LESS THAN 2.0 Urine Leukocyte Esterase LARGE Urine RBC 1 Urine WBC 31 Urine WBC Clumps OCC Microscopic Urinalysis Comment CULTURE INDICATED Date/Time Source Procedure Growth Status 05/19/17 07:45 Urine Clean Catch Urine Culture Pending Received Result Diagram: 05/19/17 0520 05/19/17 05 Imaging Last Impressions Chest X-Ray 05/19/17 0506 Signed Impressions: Service Date/Time: Friday, May 19, 2017 05:36 - CONCLUSION: 1. Cardiomegaly with new mild fairly diffuse airspace disease on the left and to lesser extent the right lung base. Niels Guzman MD Caprini VTE Risk Assessment Caprini VTE Risk Assessment: Mod/High Risk (score >= 2) Caprini Risk Assessment Model Point Value = 1 Point Value = 2 Point Value = 3 Point Value = 5 Age 41-60 Minor surgery BMI > 25 kg/m2 Swollen legs Varicose veins or History of unexplained or recurrent spontaneous Oral contraceptives or hormone replacement Sepsis (< 1 month) Serious lung disease, including pneumonia (< 1 month) Abnormal pulmonary function Acute myocardial infarction Congestive heart failure (< 1 month) History of inflammatory bowel disease Medical patient at bed rest Age 61-74 Arthroscopic surgery Major open surgery (> 45 min) Laparoscopic surgery (> 45 min) Malignancy Confined to bed (> 72 hours) Immobilizing plaster cast Central venous access Age >= 75 History of VTE Family history of VTE Factor V Leiden Prothrombin 26112H Lupus anticoagulant Anticardiolipin antibodies Elevated serum homocysteine Heparin-induced thrombocytopenia Other congenital or acquired thrombophilia Stroke (< 1 month) Elective arthroplasty Hip, pelvis, or leg fracture Acute spinal cord injury (< 1 month) Prophylaxis Regimen Total Risk Factor Score Risk Level Prophylaxis Regimen 0-1 Low Early ambulation 2 Moderate Order ONE of the following: *Sequential Compression Device (SCD) *Heparin 5000 units SQ BID 3-4 Higher Order ONE of the following medications: *Heparin 5000 units SQ TID *Enoxaparin/Lovenox 40 mg SQ daily (WT < 150 kg, CrCl > 30 mL/min) *Enoxaparin/Lovenox 30 mg SQ daily (WT < 150 kg, CrCl > 10-29 mL/min) *Enoxaparin/Lovenox 30 mg SQ BID (WT < 150 kg, CrCl > 30 mL/min) AND/OR *Sequential Compression Device (SCD) 5 or more Highest Order ONE of the following medications: *Heparin 5000 units SQ TID (Preferred with Epidurals) *Enoxaparin/Lovenox 40 mg SQ daily (WT < 150 kg, CrCl > 30 mL/min) *Enoxaparin/Lovenox 30 mg SQ daily (WT < 150 kg, CrCl > 10-29 mL/min) *Enoxaparin/Lovenox 30 mg SQ BID (WT < 150 kg, CrCl > 30 mL/min) AND *Sequential Compression Device (SCD) Assessment and Plan Problem List: (1) Vaso-occlusive sickle cell crisis ICD Code: D57.00 - Hb-SS disease with crisis, unspecified (2) Abnormal urinalysis ICD Code: R82.90 - Unspecified abnormal findings in urine (3) Acute chest syndrome in sickle crisis ICD Code: D57.01 - Hb-SS disease with acute chest syndrome (4) Pneumonia ICD Code: J18.9 - Pneumonia, unspecified organism Assessment and Plan 22-year-old female with sickle cell disease presented with vaso-occlusive crisis , patient's chest x-ray with diffuse airspace disease. She has rales on exam and reported chest discomfort, cough. Concern for mild acute chest syndrome. Vaso-occlusive sickle cell crisis/concern for acute chest syndrome: - Hemoglobin currently not too far from baseline. Monitor closely - Supportive care with aggressive IV fluid and pain control - Obtain LDH, cardiac enzymes - Empiric antibiotics with Rocephin and azithromycin - Multivitamin and folic acid - Consult hematology for assistance Probable pneumonia: - Antibiotics as above. Leukocytosis: Probably secondary to above. - Follow-up labs. Sickle cell anemia: - Hemoglobin currently 7.9. - Continue to monitor. Given her current symptoms, we'll consider transfusing if she drops below 7. Appreciate hematology input. Hypokalemia: - Replace and monitor. GI prophylaxis: Stool softener PRN constipation. DVT PPx: Lovenox Discussed Condition With Dr. Dominique Physician Certification 2 Midnight Certification Type: Admission for Inpatient Services Order for Inpatient Services The services are ordered in accordance with Medicare regulations or non- Medicare payer requirements, as applicable. In the case of services not specified as inpatient-only, they are appropriately provided as inpatient services in accordance with the 2-midnight benchmark. Estimated LOS (days): 3 days is the estimated time the patient will need to remain in the hospital, assuming treatment plan goals are met and no additional complications. Post-Hospital Plan: Home Uma López MD May 19, 2017 10:29
[2017-05-19] MEDS ORDERED: HYDROmorphone HCL PF 2 MG/ML VIAL IV PUSH PRN (14:00)
[2017-05-19] MEDS: MORPHINE SULFATE 4 MG/ML INJ IV PUSH PRN (14:11)
[2017-05-19] MEDS: ENOXAPARIN SODIUM 40 MG/0.4 ML SYRINGE SQ SCH (15:00)
[2017-05-19] MEDS: HYDROmorphone HCL PF 2 MG/ML VIAL IV PUSH SCH ×3 (19:00→23:53)
[2017-05-19] MEDS ORDERED: NS + KCL 20 MEQ INJ 1,000 ML IV SCH (19:00)
--- NOTE | 2017-05-19 19:24 | MB ---
cc: CONCHITA LÓPEZ RUBY ANNE E. M.D. DATE OF CONSULTATION 05/19/[address] Conchita López CHIEF COMPLAINT Dr. López requested a consultation for Ms. Riggs regarding sickle-cell disease and vasoocclusive pain crisis. HISTORY OF PRESENT ILLNESS Ms. 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 Ash Capps, locally. She was seen in consultation February of 2017. She was offered follow up at hematology clinic. She did not have a chance to make her appointment. I see her again in consultation after she is admitted for acute vasoocclusive pain crisis. She comes in with typical pain symptoms.. She has been feeling poorly over the last two days with typical back pain, progressively worsening. She denies any fevers, chills or night sweats. She has no sick contact. She denies any exposure to the flu. She has no problems with bowel movements or urinary complaints. Her main symptom is her pain and she is quite uncomfortable at the time of the consultation. She has history of SC disease. Apparently, both parents have trait. She describes having a lot of stress from school. On admission, her hemoglobin is 7.9, platelet count 770,000, white blood cell count of 22.2. Chest x-ray showed cardiomegaly with new mild fairly diffuse airspace disease on the left and, to a lesser extent, to the right lung base. She denies prior history of deep vein thromboses. Because of the pulmonary infiltrate, she was started on antibiotic therapy. Her bilirubin is elevated at 3.9 consistent with vasoocclusive pain crisis. Her LDH is elevated as well. Her potassium is low. Hemoglobin is 7.9, but she does not usually receive a transfusion unless her hemoglobin is less than six. She is tolerating the low hemoglobin well. She anticipates starting her cycle any time soon. She has regular menses. 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 Chronic anemia. 3. Reactive thrombocytosis. PAST SURGICAL HISTORY 1. Splenectomy 2. Cholecystectomy. SOCIAL HISTORY Denies any tobacco, alcohol or illicit drug use. She has a [employer] student. ALLERGIES LEVAQUIN MEDICATIONS Current 1. Azithromycin. 2. Ceftriaxone. 3. Dilaudid 4. Enoxaparin 5. Normal saline with potassium chloride. 6. Folate. 7. Multivitamins. 8. Morphine sulfate p.r.n. 9. Zofran. 10. Benadryl. 11. Tylenol. PHYSICAL EXAMINATION VITAL SIGNS: Temperature 99.7, heart rate 107, respiratory rate 18, blood pressure 111/59, saturation 99%. GENERAL: Ms. Riggs is a well-developed, well-nourished young woman with moderate distress and pain. She is sleepy but arousable and participate in consultation. HEENT: Sclerae are nonicteric. Oropharynx is clear. NECK: Supple. LUNGS: Clear to auscultation. CARDIOVASCULAR: Reveals a tachycardia. ABDOMEN: Benign LOWER EXTREMITIES: No edema. She is curled up in a position from pain. There are no joint effusions. LABORATORY DATA As described above. ASSESSMENT/PLAN Ms. Riggs is a 22-year-old woman with hemoglobin SC disease and acute vasoocclusive pain crisis. I recommend continued IV fluid hydration, oxygen support and pain medication. I agree with DVT prophylaxis. She has no prior history of venous thromboembolic event. Transfusion is being deferred given her threshold of less than six. We will monitor closely her response to the supportive treatment. She is on antibiotic therapy for the infiltrate. She is at risk for the capsulated organism given that she has had a splenectomy. She denies any fever. Her white count is significantly elevated and her baseline. Concern for infectious etiology precipitating her event is considered. She was afebrile but low-grade temperature is noted here. We will monitor her fever closely and proceed with blood cultures if temperature is greater than 100.5. Current treatment continues. Her questions were answered to her satisfaction. MD SCOTTY Riddle/ /6:45 PM /6:59 PM
[2017-05-20] VITALS (12 sets, daily range): BP systolic 100–122; BP diastolic 50–71; PULSE 68–108; RESP 16–20; TEMP 97.9–100.1; O2SAT 92–100
[2017-05-20] MEDS: HYDROmorphone HCL PF 2 MG/ML VIAL IV PUSH SCH ×8 (02:47→22:52)
[2017-05-20] MEDS: MORPHINE SULFATE 8 MG/ML INJ IV PUSH PRN (04:50)
[2017-05-20 08:29] LABS: AUTOMATED NEUTROPHIL # 10.4 TH/MM3 (1.8-7.7); BASOPHIL # 0.1 TH/MM3 (0-0.2); BASOPHIL % 0.5 % (0.0-2.0); EOSINOPHIL # 0.1 TH/MM3 (0-0.4); EOSINOPHIL % 0.3 % (0.0-4.0); LYMPH % 34.9 % (9.0-44.0); LYMPHOCYTE # 7.7 TH/MM3 (1.0-4.8); MEAN CELL VOLUME 81.6 FL (80.0-100.0); MEAN CORPUSCULAR HEMOGLOBIN 28.9 PG (27.0-34.0); MEAN CORPUSCULAR HGB CONC 35.5 % (32.0-36.0); MONO % 17.4 % (0.0-8.0); MONOCYTE # 3.9 TH/MM3 (0-0.9); NEUT % 46.9 % (16.0-70.0); PLATELET COUNT 606 TH/MM3 (150-450); RED CELL DISTRIBUTION WIDTH 28.2 % (11.6-17.2); WHITE BLOOD COUNT 22.1 TH/MM3 (4.0-11.0)
[2017-05-20 08:41] LABS: DIRECT BILIRUBIN ADULT 0.4 MG/DL (0.0-0.2); INDIRECT BILIRUBIN 3.3 MG/DL (0.0-0.8); MAGNESIUM 1.9 MG/DL (1.5-2.5); TOTAL BILIRUBIN ADULT 3.7 MG/DL (0.2-1.0)
[2017-05-20 08:48] LABS: RETIC # 226.5 MIL/L (20.0-150.0); RETIC % 10.6 % (0.4-3.0)
[2017-05-20 08:54] LABS: HEMOGLOBIN 6.1 GM/DL (11.6-15.3)
[2017-05-20 08:55] LABS: HEMATOCRIT 17.1 % (35.0-46.0)
[2017-05-20] MEDS: SODIUM CHLORIDE 0.9% FLUSH 10 ML FLUSH IV FLUSH SCH ×2 (09:02→21:00)
[2017-05-20] MEDS: FOLIC ACID 1 MG TAB PO SCH (09:17)
[2017-05-20] MEDS: AZITHROMYCIN 250 MG TAB PO SCH (09:17)
[2017-05-20] MEDS: MULTIVITAMIN TAB PO SCH (09:17)
[2017-05-20] MEDS: cefTRIAXone INJ 1,000 MG in SODIUM CHLORIDE 0.9% INJ 100 ML IV SCH (09:17)
[2017-05-20 09:32] LABS: BASOPHILS 1 % (0-2); CORRECTED NUCLEATED RBC 2 /100 WBC (0-0); LYMPHOCYTES 35 % (9-44); MONOCYTES 8 % (0-8); NEUTROPHIL # MANUAL DIFF 12.2 TH/MM3 (1.8-7.7); NUCLEATED RED BLOOD CELL 2 (0-0); POLYS (SEG NEUTROPHILS) 55 % (16-70); SICKLE CELLS 1+ (NORMAL); TARGET CELLS 1+ (NORMAL)
[2017-05-20] MEDS ORDERED: SODIUM CHLOR 0.9% 250 ML INJ 250 ML IV ONE (10:30)
[2017-05-20] MEDS: MORPHINE SULFATE 4 MG/ML INJ IV PUSH PRN ×2 (10:36→15:44)
[2017-05-20 11:24] LABS: CALCIUM 8.9 MG/DL (8.5-10.1); CREATININE 0.45 MG/DL (0.50-1.00); DIRECT BILIRUBIN ADULT 0.4 MG/DL (0.0-0.2); INDIRECT BILIRUBIN 3.2 MG/DL (0.0-0.8); TOTAL BILIRUBIN ADULT 3.6 MG/DL (0.2-1.0)
[2017-05-20] MEDS: NS + KCL 20 MEQ INJ 1,000 ML IV SCH ×2 (11:55→18:30)
[2017-05-20] MEDS: ENOXAPARIN SODIUM 40 MG/0.4 ML SYRINGE SQ SCH (13:12)
--- NOTE | 2017-05-20 20:05 | PD.ONC.PN ---
Subjective Subjective Remarks Still in pain. tolerating blood transfusion, met her threshold hgb 6.1 Objective Data Date Time Temp Pulse Resp B/P (MAP) Pulse Ox O2 Delivery O2 Flow Rate FiO2 05/20/17 16:28 98.6 76 20 118/55 100 05/20/17 16:00 70 05/20/17 15:27 98.7 68 18 105/65 100 05/20/17 12:00 73 05/20/17 08:00 96 Nasal Cannula 4.00 05/20/17 08:00 108 05/20/17 08:00 87 05/20/17 04:00 98.6 86 16 121/59 (79) 92 05/20/17 03:56 89 05/20/17 00:00 100.1 107 20 120/55 (76) 99 05/19/17 23:58 106 05/19/17 23:30 99 Nasal Cannula 2.00 05/19/17 20:07 99 05/20/17 05/20/17 05/20/17 07:00 15:00 23:00 Intake Total 15 ml Balance 15 ml Result Diagram: 05/20/17 0655 05/20/17 06 Laboratory Results Laboratory Tests Test 05/20/17 06:55 White Blood Count 22.1 TH/MM3 Red Blood Count 2.10 MIL/MM3 Hemoglobin 6.1 GM/DL Hematocrit 17.1 % Mean Corpuscular Volume 81.6 FL Mean Corpuscular Hemoglobin 28.9 PG Mean Corpuscular Hemoglobin Concent 35.5 % Red Cell Distribution Width 28.2 % Platelet Count 606 TH/MM3 Mean Platelet Volume 8.0 FL Neutrophils (%) (Auto) 46.9 % Lymphocytes (%) (Auto) 34.9 % Monocytes (%) (Auto) 17.4 % Eosinophils (%) (Auto) 0.3 % Basophils (%) (Auto) 0.5 % Neutrophils # (Auto) 10.4 TH/MM3 Lymphocytes # (Auto) 7.7 TH/MM3 Monocytes # (Auto) 3.9 TH/MM3 Eosinophils # (Auto) 0.1 TH/MM3 Basophils # (Auto) 0.1 TH/MM3 CBC Comment AUTO DIFF Differential Total Cells Counted 100 Neutrophils % (Manual) 55 % Lymphocytes % 35 % Monocytes % 8 % Eosinophils % 1 % Basophils % 1 % Neutrophils # (Manual) 12.2 TH/MM3 Nucleated Red Blood Cells 2 /100 WBC Differential Comment FINAL DIFF MANUAL Platelet Estimate HIGH Platelet Morphology Comment NORMAL Sickle Cells 1+ Target Cells 1+ Reticulocyte Count 10.6 % Absolute Reticulocyte Count 226.5 MIL/L Blood Urea Nitrogen 2 MG/DL Creatinine 0.45 MG/DL Random Glucose 84 MG/DL Calcium Level 8.9 MG/DL Total Bilirubin 3.6 MG/DL Direct Bilirubin 0.4 MG/DL Sodium Level 141 MEQ/L Potassium Level 3.1 MEQ/L Chloride Level 109 MEQ/L Carbon Dioxide Level 25.0 MEQ/L Anion Gap 7 MEQ/L Estimat Glomerular Filtration Rate 213 ML/MIN Magnesium Level 1.9 MG/DL Indirect Bilirubin 3.2 MG/DL Lactate Dehydrogenase 346 U/L Culture Results Microbiology Date/Time Source Procedure Growth Status 05/19/17 09:35 Blood Line Aerobic Blood Culture - Preliminary NO GROWTH IN 1 DAY Resulted 05/19/17 09:35 Blood Line Anaerobic Blood Culture - Preliminary NO GROWTH IN 1 DAY Resulted 05/19/17 09:00 Blood Line Aerobic Blood Culture - Preliminary NO GROWTH IN 1 DAY Resulted 05/19/17 09:00 Blood Line Anaerobic Blood Culture - Preliminary NO GROWTH IN 1 DAY Resulted 05/19/17 07:45 Urine Clean Catch Urine Culture - Preliminary NO GROWTH IN 24 HOURS. Resulted Administered Medications Medications (Trade) Dose Ordered Sig/Annalee Route PRN Reason Start Time Stop Time Status Last Admin Dose Admin Sodium Chloride (NS Flush) 2 ml BID IV FLUSH 05/19/17 09:00 05/20/17 09:02 Morphine Sulfate (Morphine Inj) 2 mg Q4H PRN IV PUSH PAIN SCALE 1 TO 5 05/19/17 08:00 05/20/17 15:44 Morphine Sulfate (Morphine Inj) 5 mg Q4H PRN IV PUSH PAIN SCALE 6 TO 10 05/19/17 08:00 05/20/17 04:50 Acetaminophen (Tylenol) 650 mg Q4H PRN PO FEVER 05/19/17 08:00 05/19/17 23:57 Folic Acid (Folate) 1 mg DAILY PO 05/19/17 09:00 05/20/17 09:17 Multivitamins (Theragran) 1 tab DAILY PO 05/19/17 09:00 05/20/17 09:17 Ceftriaxone Sodium 1000 mg/ Sodium Chloride 100 ml @ 200 mls/hr Q24H IV 05/20/17 08:00 05/20/17 09:17 Azithromycin (Zithromax) 500 mg DAILY PO 05/20/17 09:00 05/20/17 09:17 Hydromorphone HCl (Dilaudid Pf Inj) 1 mg Q3HR IV PUSH 05/19/17 19:00 05/20/17 17:30 Potassium Chloride/Sodium Chloride 1,000 ml @ 125 mls/hr Q8H IV 05/20/17 10:30 05/20/17 11:55 Objective Remarks GENERAL: Well-nourished, well-developed patient. SKIN: Warm and dry. HEAD: Normocephalic. EYES: Noted scleral icteric. No injection or drainage. NECK: Supple, trachea midline. No JVD or lymphadenopathy. LYMPHATIC: No adenopathy. CARDIOVASCULAR: Regular rate and rhythm without murmurs. RESPIRATORY: Breath sounds equal bilaterally. No accessory muscle use. GASTROINTESTINAL: Abdomen soft, non-tender, nondistended. EXTREMITIES: No cyanosis, or edema. MUSCULOSKELETAL: Adequate muscle tone. NEUROLOGICAL: No obvious focal deficit. Awake, alert, and oriented x3. PSYCHIATRIC: Appropriate mood and affect; insight and judgment normal. 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 Agree with transfusion. Cont Dilaudid scheduled and Morphine for break through reports pain is controlled on the schedule. Given that Dilaudid is schedule nursing has been assessing her regularly. 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 Cont current support. Mable Sexton MD May 20, 2017 20:05
--- NOTE | 2017-05-20 22:38 | HHI.PR ---
Subjective Remarks Patient seen this morning around 10 AM. She reports shortness of breath improved. She reports diffuse pain improved as well. Objective Vital Signs Date Time Temp Pulse Resp B/P (MAP) Pulse Ox O2 Delivery O2 Flow Rate FiO2 05/20/17 22:26 98.1 72 20 100/50 100 05/20/17 20:00 98.1 69 18 105/66 (79) 100 05/20/17 20:00 Nasal Cannula 4.00 05/20/17 16:28 98.6 76 20 118/55 100 05/20/17 16:00 70 05/20/17 16:00 98.6 75 20 118/55 (76) 100 05/20/17 15:27 98.7 68 18 105/65 100 05/20/17 12:00 73 05/20/17 12:00 98.7 80 20 116/59 (78) 99 05/20/17 08:00 96 Nasal Cannula 4.00 05/20/17 08:00 108 05/20/17 08:00 98.5 100 20 103/53 (70) 95 05/20/17 08:00 87 05/20/17 04:00 98.6 86 16 121/59 (79) 92 05/20/17 03:56 89 05/20/17 00:00 100.1 107 20 120/55 (76) 99 05/19/17 23:58 106 05/19/17 23:30 99 Nasal Cannula 2.00 I/O 05/19/17 05/19/17 05/19/17 05/20/17 05/20/17 05/20/17 07:00 15:00 23:00 07:00 15:00 23:00 Intake Total 1000 ml 1350 ml 900 ml 415 ml Balance 1000 ml 1350 ml 900 ml 415 ml Intake Oral 0 ml IV Total 1000 ml 1350 ml 900 ml Packed Cells 400 ml Blood Product IV Normal Saline Flush 15 ml # Voids 3 3 # Bowel Movements 0 Result Diagram: 05/20/1765405/20/17654 Objective Remarks GENERAL: patient lying in bed. Appears comfortable. Alert and oriented 3. SKIN: Warm and dry. HEAD: Normocephalic. EYES: No scleral icterus. No injection or drainage. NECK: Supple, trachea midline. No JVD. CARDIOVASCULAR: Regular rate and rhythm without murmurs, gallops, or rubs. RESPIRATORY: Breath sounds equal bilaterally. No accessory muscle use. GASTROINTESTINAL: Abdomen soft, non-tender, nondistended. MUSCULOSKELETAL: No cyanosis, or edema. BACK: Nontender without obvious deformity. No CVA tenderness. A/P Assessment and Plan 22-year-old female with sickle cell disease presented with vaso-occlusive crisis , patient's chest x-ray with diffuse airspace disease. She has rales on exam and reported chest discomfort, cough. Concern for mild acute chest syndrome. //Vaso-occlusive sickle cell crisis/concern for acute chest syndrome //Sickle cell anemia.: - Hemoglobin currently not too far from baseline. Monitor closely - Supportive care with aggressive IV fluid and pain control - Obtain LDH, cardiac enzymes - Empiric antibiotics with Rocephin and azithromycin - Multivitamin and folic acid - Consult hematology for assistance = 05/20. Hemoglobin 6.1. Likely secondary to sickling. Patient started on mandatory 4 L oxygen by nasal cannula. Transfuse 2 units. Hematology following. Appreciate assistance. //Probable pneumonia: - Antibiotics as above. = 05/20. Continue broad-spectrum antibiotics. //Leukocytosis: Probably secondary to above. -Leukocytes still 22.1. Continue to monitor. //Hypokalemia: - Replace and monitor. = 05/20. Potassium 3.1. Replaced again. Continue to monitor. //GI prophylaxis: Stool softener PRN constipation. DVT PPx: Lovenox Discharge Planning continue treatment for sickle cell anemia. Paul Bajwa MD May 20, 2017 22:38
[2017-05-20] MEDS ORDERED: POTASSIUM CHLORIDE 20 MEQ CONTROLLED RELEASE TAB PO ONE (22:45)
[2017-05-20] MEDS: SODIUM CHLORIDE 0.9% FLUSH 10 ML FLUSH IV FLUSH PRN (22:52)
[2017-05-21] VITALS (10 sets, daily range): BP systolic 112–119; BP diastolic 59–67; PULSE 71–103; RESP 20; TEMP 97.7–98.3; O2SAT 95–100
[2017-05-21] MEDS: MORPHINE SULFATE 4 MG/ML INJ IV PUSH PRN ×4 (00:27→18:31)
[2017-05-21] MEDS: NS + KCL 20 MEQ INJ 1,000 ML IV SCH ×3 (01:23→18:10)
[2017-05-21] MEDS: SODIUM CHLORIDE 0.9% FLUSH 10 ML FLUSH IV FLUSH PRN (02:03)
[2017-05-21] MEDS: HYDROmorphone HCL PF 2 MG/ML VIAL IV PUSH SCH ×8 (02:03→23:38)
[2017-05-21] MEDS: cefTRIAXone INJ 1,000 MG in SODIUM CHLORIDE 0.9% INJ 100 ML IV SCH (08:11)
[2017-05-21] MEDS: SODIUM CHLORIDE 0.9% FLUSH 10 ML FLUSH IV FLUSH SCH ×2 (08:12→20:06)
[2017-05-21] MEDS: FOLIC ACID 1 MG TAB PO SCH (08:12)
[2017-05-21] MEDS: MULTIVITAMIN TAB PO SCH (08:12)
[2017-05-21] MEDS: AZITHROMYCIN 250 MG TAB PO SCH (08:12)
[2017-05-21 09:27] LABS: AUTOMATED NEUTROPHIL # 11.7 TH/MM3 (1.8-7.7); BASOPHIL # 0.1 TH/MM3 (0-0.2); BASOPHIL % 0.3 % (0.0-2.0); EOSINOPHIL # 0.3 TH/MM3 (0-0.4); EOSINOPHIL % 1.6 % (0.0-4.0); HEMATOCRIT 25.3 % (35.0-46.0); HEMOGLOBIN 8.8 GM/DL (11.6-15.3); LYMPH % 24.4 % (9.0-44.0); LYMPHOCYTE # 4.6 TH/MM3 (1.0-4.8); MEAN CELL VOLUME 84.5 FL (80.0-100.0); MEAN CORPUSCULAR HEMOGLOBIN 29.5 PG (27.0-34.0); MEAN CORPUSCULAR HGB CONC 34.9 % (32.0-36.0); MEAN PLATELET VOLUME 7.9 FL (7.0-11.0); MONOCYTE # 2.1 TH/MM3 (0-0.9); NEUT % 62.7 % (16.0-70.0); PLATELET COUNT 615 TH/MM3 (150-450); RED BLOOD COUNT 2.99 MIL/MM3 (4.00-5.30); RED CELL DISTRIBUTION WIDTH 22.7 % (11.6-17.2); WHITE BLOOD COUNT 18.7 TH/MM3 (4.0-11.0)
[2017-05-21 09:42] LABS: ALBUMIN 3.6 GM/DL (3.4-5.0); BICARBONATE 27.2 MEQ/L (21.0-32.0); CALCIUM 8.8 MG/DL (8.5-10.1); CREATININE 0.35 MG/DL (0.50-1.00); MAGNESIUM 2.2 MG/DL (1.5-2.5); PHOSPHORUS 3.4 MG/DL (2.5-4.9)
[2017-05-21] MEDS ORDERED: POTASSIUM CHLORIDE 20 MEQ CONTROLLED RELEASE TAB PO ONE (11:15)
--- NOTE | 2017-05-21 11:47 | PD.ONC.PN ---
Subjective Subjective Remarks Afebrile overnight. Patient resting in bed. States crisis pain is in her low back. Denies chest pain or cough. states the pain is improved and controlled on dilaudid. Objective Data Date Time Temp Pulse Resp B/P (MAP) Pulse Ox O2 Delivery O2 Flow Rate FiO2 05/21/17 09:08 Nasal Cannula 4.00 05/21/17 08:00 77 05/21/17 08:00 98.3 87 20 116/61 (79) 100 05/21/17 04:05 80 05/21/17 04:00 97.8 72 20 112/63 (79) 96 05/21/17 04:00 Nasal Cannula 4.00 05/21/17 00:00 103 05/21/17 00:00 Nasal Cannula 4.00 05/21/17 00:00 98.2 73 20 114/67 (83) 100 05/20/17 22:56 Nasal Cannula 4.00 05/20/17 22:56 97.9 75 18 122/64 98 05/20/17 22:41 98.3 81 18 109/71 100 05/20/17 22:41 Nasal Cannula 4.00 05/20/17 22:26 98.1 72 20 100/50 100 05/20/17 20:00 71 05/20/17 20:00 98.1 69 18 105/66 (79) 100 05/20/17 20:00 Nasal Cannula 4.00 05/20/17 16:28 98.6 76 20 118/55 100 05/20/17 16:00 70 05/20/17 16:00 98.6 75 20 118/55 (76) 100 05/20/17 15:27 98.7 68 18 105/65 100 05/20/17 12:00 73 05/20/17 12:00 98.7 80 20 116/59 (78) 99 05/21/17 05/21/17 05/21/17 07:00 15:00 23:00 Intake Total 2027 ml 100 ml Output Total 600 ml Balance 1427 ml 100 ml Result Diagram: 05/21/1782505/21/17825 Laboratory Results Laboratory Tests Test 05/21/17 08:26 White Blood Count 18.7 TH/MM3 Red Blood Count 2.99 MIL/MM3 Hemoglobin 8.8 GM/DL Hematocrit 25.3 % Mean Corpuscular Volume 84.5 FL Mean Corpuscular Hemoglobin 29.5 PG Mean Corpuscular Hemoglobin Concent 34.9 % Red Cell Distribution Width 22.7 % Platelet Count 615 TH/MM3 Mean Platelet Volume 7.9 FL Neutrophils (%) (Auto) 62.7 % Lymphocytes (%) (Auto) 24.4 % Monocytes (%) (Auto) 11.0 % Eosinophils (%) (Auto) 1.6 % Basophils (%) (Auto) 0.3 % Neutrophils # (Auto) 11.7 TH/MM3 Lymphocytes # (Auto) 4.6 TH/MM3 Monocytes # (Auto) 2.1 TH/MM3 Eosinophils # (Auto) 0.3 TH/MM3 Basophils # (Auto) 0.1 TH/MM3 CBC Comment DIFF FINAL Differential Comment Blood Urea Nitrogen 1 MG/DL Creatinine 0.35 MG/DL Random Glucose 69 MG/DL Albumin 3.6 GM/DL Calcium Level 8.8 MG/DL Phosphorus Level 3.4 MG/DL Magnesium Level 2.2 MG/DL Sodium Level 141 MEQ/L Potassium Level 3.0 MEQ/L Chloride Level 106 MEQ/L Carbon Dioxide Level 27.2 MEQ/L Anion Gap 8 MEQ/L Estimat Glomerular Filtration Rate 284 ML/MIN Culture Results Microbiology Date/Time Source Procedure Growth Status 05/19/17 09:35 Blood Line Aerobic Blood Culture - Preliminary NO GROWTH IN 2 DAYS Resulted 05/19/17 09:35 Blood Line Anaerobic Blood Culture - Preliminary NO GROWTH IN 2 DAYS Resulted 05/19/17 09:00 Blood Line Aerobic Blood Culture - Preliminary NO GROWTH IN 2 DAYS Resulted 05/19/17 09:00 Blood Line Anaerobic Blood Culture - Preliminary NO GROWTH IN 2 DAYS Resulted 05/19/17 07:45 Urine Clean Catch Urine Culture - Final NO GROWTH IN 48 HOURS. Complete Administered Medications Medications (Trade) Dose Ordered Sig/Annalee Route PRN Reason Start Time Stop Time Status Last Admin Dose Admin Sodium Chloride (NS Flush) 2 ml UNSCH PRN IV FLUSH FLUSH AFTER USING IV ACCESS 05/19/17 08:00 05/21/17 02:03 Sodium Chloride (NS Flush) 2 ml BID IV FLUSH 05/19/17 09:00 05/21/17 08:12 Morphine Sulfate (Morphine Inj) 2 mg Q4H PRN IV PUSH PAIN SCALE 1 TO 5 05/19/17 08:00 05/21/17 06:22 Morphine Sulfate (Morphine Inj) 5 mg Q4H PRN IV PUSH PAIN SCALE 6 TO 10 05/19/17 08:00 05/20/17 04:50 Acetaminophen (Tylenol) 650 mg Q4H PRN PO FEVER 05/19/17 08:00 05/19/17 23:57 Folic Acid (Folate) 1 mg DAILY PO 05/19/17 09:00 05/21/17 08:12 Multivitamins (Theragran) 1 tab DAILY PO 05/19/17 09:00 05/21/17 08:12 Diphenhydramine HCl (Benadryl) 25 mg Q4H PRN PO ITCHING 05/19/17 08:00 05/21/17 00:22 Ceftriaxone Sodium 1000 mg/ Sodium Chloride 100 ml @ 200 mls/hr Q24H IV 05/20/17 08:00 05/21/17 08:11 Azithromycin (Zithromax) 500 mg DAILY PO 05/20/17 09:00 05/21/17 08:12 Hydromorphone HCl (Dilaudid Pf Inj) 1 mg Q3HR IV PUSH 05/19/17 19:00 05/21/17 10:55 Potassium Chloride/Sodium Chloride 1,000 ml @ 125 mls/hr Q8H IV 05/20/17 10:30 05/21/17 09:47 Objective Remarks GENERAL: Young woman, lying in bed watching TV. she appears comfortable and in nad. SKIN: Warm and dry. HEAD: Normocephalic. EYES: No injection or drainage. NECK: Supple, trachea midline. CARDIOVASCULAR: Regular rate and rhythm RESPIRATORY: Breath sounds equal bilaterally. No accessory muscle use. GASTROINTESTINAL: Abdomen soft, non-tender, nondistended. EXTREMITIES: No cyanosis NEUROLOGICAL: awake and alert, normal speech. Assessment/Plan Problem List: (1) Vaso-occlusive sickle cell crisis ICD Codes: D57.00 - Hb-SS disease with crisis, unspecified Status: Acute Plan: 05/21: hemoglobin improved to >8. no need for transfusion today continue current pain regimen. Assessment 22 y/o woman with Hgb SC disease with vasoocclusive crisis. Cont current support. Plan 1. continue IVF 2. continue pain management. 3. monitor CBC, bilirubin, retic count. Attending Statement The exam, history, and the medical decision-making described in the above note were completed with the assistance of the mid-level provider. I reviewed and agree with the findings presented. I attest that I had a [id number] encounter with the patient on the same day, and personally performed and documented my assessment and findings in the medical record. Feel better, still has pain, request continue current pain regimen. Discussed the two breakthrough doses of morphine. Encourage to get OOB and ambulate to prevent DVT. FU as out pt. Lola Castellanos May 21, 2017 11:47 Mable Sexton MD May 21, 2017 15:25
[2017-05-21] MEDS: ENOXAPARIN SODIUM 40 MG/0.4 ML SYRINGE SQ SCH (15:00)
--- NOTE | 2017-05-21 16:19 | HHI.PR ---
Subjective Remarks Patient seen this morning. Says that pain is somewhat improved from yesterday. Shortness of breath again improved. With continued generalized fatigue. Does not feel like she will be able to go home at this time however. Objective Vital Signs Date Time Temp Pulse Resp B/P (MAP) Pulse Ox O2 Delivery O2 Flow Rate FiO2 05/21/17 12:00 98.1 87 20 115/59 (77) 100 05/21/17 12:00 74 05/21/17 09:08 Nasal Cannula 4.00 05/21/17 08:00 77 05/21/17 08:00 98.3 87 20 116/61 (79) 100 05/21/17 04:05 80 05/21/17 04:00 97.8 72 20 112/63 (79) 96 05/21/17 04:00 Nasal Cannula 4.00 05/21/17 00:00 103 05/21/17 00:00 Nasal Cannula 4.00 05/21/17 00:00 98.2 73 20 114/67 (83) 100 05/20/17 22:56 Nasal Cannula 4.00 05/20/17 22:56 97.9 75 18 122/64 98 05/20/17 22:41 98.3 81 18 109/71 100 05/20/17 22:41 Nasal Cannula 4.00 05/20/17 22:26 98.1 72 20 100/50 100 05/20/17 20:00 71 05/20/17 20:00 98.1 69 18 105/66 (79) 100 05/20/17 20:00 Nasal Cannula 4.00 05/20/17 16:28 98.6 76 20 118/55 100 I/O 05/20/17 05/20/17 05/20/17 05/21/17 05/21/17 05/21/17 07:00 15:00 23:00 07:00 15:00 23:00 Intake Total 425 ml 2027 ml 100 ml Output Total 600 ml Balance 425 ml 1427 ml 100 ml Intake Oral 0 ml 500 ml IV Total 1127 ml 100 ml Packed Cells 400 ml 400 ml Blood Product IV Normal Saline Flush 25 ml Output Urine Total 600 ml # Voids 3 3 # Bowel Movements 0 1 Result Diagram: 05/21/1782505/21/17825 Objective Remarks GENERAL: patient lying in bed. Appears comfortable. Alert and oriented 3. SKIN: Warm and dry. HEAD: Normocephalic. EYES: No scleral icterus. No injection or drainage. NECK: Supple, trachea midline. No JVD. CARDIOVASCULAR: Regular rate and rhythm without murmurs, gallops, or rubs. RESPIRATORY: Breath sounds equal bilaterally. No accessory muscle use. GASTROINTESTINAL: Abdomen soft, non-tender, nondistended. MUSCULOSKELETAL: No cyanosis, or edema. BACK: Nontender without obvious deformity. No CVA tenderness. A/P Assessment and Plan 22-year-old female with sickle cell disease presented with vaso-occlusive crisis , patient's chest x-ray with diffuse airspace disease. She has rales on exam and reported chest discomfort, cough. Concern for mild acute chest syndrome. //Vaso-occlusive sickle cell crisis/concern for acute chest syndrome //Sickle cell anemia.: - Hemoglobin currently not too far from baseline. Monitor closely - Supportive care with aggressive IV fluid and pain control - Obtain LDH, cardiac enzymes - Empiric antibiotics with Rocephin and azithromycin - Multivitamin and folic acid - Consult hematology for assistance = 05/20. Hemoglobin 6.1. Likely secondary to sickling. Patient started on mandatory 4 L oxygen by nasal cannula. Transfuse 2 units. Hematology following. Appreciate assistance. = 05/21. Hemoglobin improved to 8.8. Continue on oxygen by nasal cannula. //Probable pneumonia: - Antibiotics as above. = 05/20. Continue broad-spectrum antibiotics. = 05/21. Continues with improvement. Plan for transition to by mouth antibiotics possibly tomorrow. //Leukocytosis: Probably secondary to above. -Leukocytes improving. 18.7. Continue to monitor. //Hypokalemia: - Replace and monitor. = 05/20. Potassium 3.1. Replaced again. Continue to monitor. = 05/21. Potassium 3.0. Replace again. Recheck tomorrow //GI prophylaxis: Stool softener PRN constipation. Discharge Planning Possibly discharge home tomorrow if improved. Paul Bajwa MD May 21, 2017 16:19
[2017-05-21] MEDS: MORPHINE SULFATE 8 MG/ML INJ IV PUSH PRN (22:32)
[2017-05-22 00:31] VITALS: BP 111/60; PULSE 98; RESP 20; TEMP 98.2; O2SAT 97
[2017-05-22] MEDS: NS + KCL 20 MEQ INJ 1,000 ML IV SCH ×2 (02:13→10:10)
[2017-05-22] MEDS: HYDROmorphone HCL PF 2 MG/ML VIAL IV PUSH SCH ×4 (02:14→11:00)
[2017-05-22 03:45] VITALS: PULSE 91
[2017-05-22 04:00] VITALS: BP 107/54; PULSE 83; RESP 20; TEMP 98.1; O2SAT 95
[2017-05-22] MEDS: MORPHINE SULFATE 8 MG/ML INJ IV PUSH PRN ×2 (04:29→10:09)
[2017-05-22 07:37] LABS: AUTOMATED NEUTROPHIL # 8.6 TH/MM3 (1.8-7.7); BASOPHIL # 0.1 TH/MM3 (0-0.2); BASOPHIL % 0.4 % (0.0-2.0); EOSINOPHIL # 0.4 TH/MM3 (0-0.4); EOSINOPHIL % 2.9 % (0.0-4.0); HEMOGLOBIN 9.4 GM/DL (11.6-15.3); LYMPH % 28.8 % (9.0-44.0); LYMPHOCYTE # 4.4 TH/MM3 (1.0-4.8); MEAN CELL VOLUME 83.8 FL (80.0-100.0); MEAN CORPUSCULAR HEMOGLOBIN 30.4 PG (27.0-34.0); MEAN CORPUSCULAR HGB CONC 36.3 % (32.0-36.0); MEAN PLATELET VOLUME 7.6 FL (7.0-11.0); MONO % 11.3 % (0.0-8.0); MONOCYTE # 1.7 TH/MM3 (0-0.9); NEUT % 56.6 % (16.0-70.0); PLATELET COUNT 637 TH/MM3 (150-450); RED CELL DISTRIBUTION WIDTH 22.3 % (11.6-17.2); WHITE BLOOD COUNT 15.3 TH/MM3 (4.0-11.0)
[2017-05-22 07:42] LABS: ALBUMIN 3.8 GM/DL (3.4-5.0); BICARBONATE 26.1 MEQ/L (21.0-32.0); CALCIUM 9.2 MG/DL (8.5-10.1); CREATININE 0.39 MG/DL (0.50-1.00); MAGNESIUM 2.2 MG/DL (1.5-2.5)
[2017-05-22 07:43] LABS: PHOSPHORUS 3.3 MG/DL (2.5-4.9)
[2017-05-22 08:00] VITALS: PULSE 77
[2017-05-22] MEDS: AZITHROMYCIN 250 MG TAB PO SCH (08:22)
[2017-05-22] MEDS: FOLIC ACID 1 MG TAB PO SCH (08:22)
[2017-05-22] MEDS: MULTIVITAMIN TAB PO SCH (08:22)
[2017-05-22] MEDS: cefTRIAXone INJ 1,000 MG in SODIUM CHLORIDE 0.9% INJ 100 ML IV SCH (08:22)
[2017-05-22] MEDS: SODIUM CHLORIDE 0.9% FLUSH 10 ML FLUSH IV FLUSH SCH (08:23)
[2017-05-22 08:42] VITALS: BP 122/62; PULSE 77; RESP 18; TEMP 98.3; O2SAT 100
[2017-05-22 08:42] LABS: LYMPHOCYTES 18 % (9-44); MONOCYTES 12 % (0-8); NEUTROPHIL # MANUAL DIFF 10.4 TH/MM3 (1.8-7.7); POLYS (SEG NEUTROPHILS) 68 % (16-70)
[2017-05-22 08:43] LABS: HOWELL-JOLLY BODIES PRESENT (NONE SEEN); OVALOCYTES 1+ (NORMAL); SICKLE CELLS 1+ (NORMAL)
[2017-05-22 08:44] LABS: TARGET CELLS 1+ (NORMAL)
[2017-05-22] MEDS ORDERED: AZIT250T3 PO (11:34)
--- NOTE | 2017-05-22 11:40 | HHI.PR ---
Subjective Remarks pt says feeling well.pain controlled. no n/v/cp/sob. would like to go home. Objective Vital Signs Date Time Temp Pulse Resp B/P (MAP) Pulse Ox O2 Delivery O2 Flow Rate FiO2 05/22/17 09:22 Nasal Cannula 2.00 05/22/17 08:42 98.3 77 18 122/62 (82) 100 05/22/17 08:00 77 05/22/17 04:00 98.1 83 20 107/54 (71) 95 05/22/17 04:00 Nasal Cannula 2.00 05/22/17 03:45 91 05/22/17 00:31 Nasal Cannula 2.00 05/22/17 00:31 98.2 98 20 111/60 (77) 97 05/21/17 23:49 102 05/21/17 21:45 96 05/21/17 20:55 97.9 85 20 119/60 (79) 95 05/21/17 20:55 Room Air 05/21/17 19:45 71 05/21/17 16:00 97.7 77 20 113/63 (80) 97 05/21/17 16:00 86 05/21/17 12:00 98.1 87 20 115/59 (77) 100 05/21/17 12:00 74 I/O 05/21/17 05/21/17 05/21/17 05/22/17 05/22/17 05/22/17 07:00 15:00 23:00 07:00 15:00 23:00 Intake Total 2027 ml 100 ml 240 ml 2258 ml Output Total 600 ml Balance 1427 ml 100 ml 240 ml 2258 ml Intake Oral 500 ml 240 ml 720 ml IV Total 1127 ml 100 ml 1538 ml Packed Cells 400 ml Output Urine Total 600 ml # Voids 6 5 # Bowel Movements 1 1 1 Result Diagram: 05/22/17 0632 05/22/17 0632 Objective Remarks GENERAL: patient lying in bed. Appears comfortable. Alert and oriented 3. off o2, on laptop SKIN: Warm and dry. HEAD: Normocephalic. EYES: No scleral icterus. No injection or drainage. NECK: Supple, trachea midline. No JVD. CARDIOVASCULAR: Regular rate and rhythm without murmurs, gallops, or rubs. RESPIRATORY: Breath sounds equal bilaterally. No accessory muscle use. GASTROINTESTINAL: Abdomen soft, non-tender, nondistended. MUSCULOSKELETAL: No cyanosis, or edema. BACK: Nontender without obvious deformity. No CVA tenderness. A/P Assessment and Plan 22-year-old female with sickle cell disease presented with vaso-occlusive crisis , patient's chest x-ray with diffuse airspace disease. She has rales on exam and reported chest discomfort, cough. Concern for mild acute chest syndrome. //Vaso-occlusive sickle cell crisis/concern for acute chest syndrome //Sickle cell anemia.: - Hemoglobin currently not too far from baseline. Monitor closely - Supportive care with aggressive IV fluid and pain control - Obtain LDH, cardiac enzymes - Empiric antibiotics with Rocephin and azithromycin - Multivitamin and folic acid - Consult hematology for assistance = 05/20. Hemoglobin 6.1. Likely secondary to sickling. Patient started on mandatory 4 L oxygen by nasal cannula. Transfuse 2 units. Hematology following. Appreciate assistance. = 05/21. Hemoglobin improved to 8.8. Continue on oxygen by nasal cannula. =/2. Hemoglobin improved over 9. She is stable for discharge home. //Probable pneumonia: - Antibiotics as above. = 05/20. Continue broad-spectrum antibiotics. = 05/21. Continues with improvement. Plan for transition to by mouth antibiotics possibly tomorrow. = 05/22. Continue azithromycin to complete treatment course. //Leukocytosis: Probably secondary to above. -Leukocytes improving. 18.7. Continue to monitor. = Improving 15. Follow-up labs to be copied to Dr. mckeon versus outpatient. //Hypokalemia: - Replace and monitor. = 05/20. Potassium 3.1. Replaced again. Continue to monitor. = 05/21. Potassium 3.0. Replace again. Recheck tomorrow = Resolved after replacement. //GI prophylaxis: Stool softener PRN constipation. Discharge Planning Possibly discharge home tomorrow if improved. Paul Bajwa MD May 22, 2017 11:40
--- NOTE | 2017-05-22 11:43 | HHI.DS ---
Discharge Summary Admission Date May 19, 2017 at 08:03 Discharge Date: May 22, 2017 Admitting Diagnosis sickle cell pain crisis, lung density (1) Vaso-occlusive sickle cell crisis ICD Code: D57.00 - Hb-SS disease with crisis, unspecified Status: Acute (2) Abnormal urinalysis ICD Code: R82.90 - Unspecified abnormal findings in urine (3) Acute chest syndrome in sickle crisis ICD Code: D57.01 - Hb-SS disease with acute chest syndrome (4) Pneumonia ICD Code: J18.9 - Pneumonia, unspecified organism Procedures No invasive procedures. Brief History - From Admission 22-year-old female with a medical history significant for sickle cell presented to the emergency room with concern for sickle cell crisis. Patient reports for the past 2 days she has been feeling bad with diffuse pain all over her back and legs. She also endorsed chest congestion, cough, and chest pain. She states that she has been trying to stay hydrated. She reports subjective fevers. She denies any dysuria, urinary frequency, or suprapubic pain. Workup in the emergency room revealed abnormal urinalysis. Her chest x-ray is concerning for pneumonia versus acute chest syndrome. CBC/BMP: 05/22/17 0632 05/22/17 0632 Significant Findings Laboratory Tests Test 05/20/17 06:55 05/21/17 08:26 05/22/17 06:32 White Blood Count 22.1 TH/MM3 (4.0-11.0) 18.7 TH/MM3 (4.0-11.0) 15.3 TH/MM3 (4.0-11.0) Red Blood Count 2.10 MIL/MM3 (4.00-5.30) 2.99 MIL/MM3 (4.00-5.30) 3.10 MIL/MM3 (4.00-5.30) Hemoglobin 6.1 GM/DL (11.6-15.3) 8.8 GM/DL (11.6-15.3) 9.4 GM/DL (11.6-15.3) Hematocrit 17.1 % (35.0-46.0) 25.3 % (35.0-46.0) 26.0 % (35.0-46.0) Red Cell Distribution Width 28.2 % (11.6-17.2) 22.7 % (11.6-17.2) 22.3 % (11.6-17.2) Platelet Count 606 TH/MM3 (150-450) 615 TH/MM3 (150-450) 637 TH/MM3 (150-450) Monocytes (%) (Auto) 17.4 % (0.0-8.0) 11.0 % (0.0-8.0) 11.3 % (0.0-8.0) Neutrophils # (Auto) 10.4 TH/MM3 (1.8-7.7) 11.7 TH/MM3 (1.8-7.7) 8.6 TH/MM3 (1.8-7.7) Lymphocytes # (Auto) 7.7 TH/MM3 (1.0-4.8) Monocytes # (Auto) 3.9 TH/MM3 (0-0.9) 2.1 TH/MM3 (0-0.9) 1.7 TH/MM3 (0-0.9) Neutrophils # (Manual) 12.2 TH/MM3 (1.8-7.7) 10.4 TH/MM3 (1.8-7.7) Nucleated Red Blood Cells 2 /100 WBC (0-0) Platelet Estimate HIGH (NORMAL) HIGH (NORMAL) Sickle Cells 1+ (NORMAL) 1+ (NORMAL) Target Cells 1+ (NORMAL) 1+ (NORMAL) Reticulocyte Count 10.6 % (0.4-3.0) Absolute Reticulocyte Count 226.5 MIL/L (20.0-150.0) Blood Urea Nitrogen 2 MG/DL (7-18) 1 MG/DL (7-18) 1 MG/DL (7-18) Creatinine 0.45 MG/DL (0.50-1.00) 0.35 MG/DL (0.50-1.00) 0.39 MG/DL (0.50-1.00) Total Bilirubin 3.6 MG/DL (0.2-1.0) Direct Bilirubin 0.4 MG/DL (0.0-0.2) Potassium Level 3.1 MEQ/L (3.5-5.1) 3.0 MEQ/L (3.5-5.1) Chloride Level 109 MEQ/L (98-107) Indirect Bilirubin 3.2 MG/DL (0.0-0.8) Lactate Dehydrogenase 346 U/L (84-246) Random Glucose 69 MG/DL (74-106) Mean Corpuscular Hemoglobin Concent 36.3 % (32.0-36.0) Monocytes % 12 % (0-8) Ovalocytes 1+ (NORMAL) Imaging Last Impressions Chest X-Ray 05/19/17 0506 Signed Impressions: Service Date/Time: Friday, May 19, 2017 05:36 - CONCLUSION: 1. Cardiomegaly with new mild fairly diffuse airspace disease on the left and to lesser extent the right lung base. Niels Guzmna MD Hospital Course Patient presented with anemia, hemoglobin 6.1, leukocytosis of 22.1.. Chest x- ray with new mild diffuse airspace disease on the left, and to a lesser extent the right lung base. Patient was started on broad-spectrum antibiotics. Hematology was consulted. Patient was transfused 2 units of red blood cells with improvement of hemoglobin to 9.4 on discharge. Patient feeling much better , was discharged home with azithromycin to complete treatment course. Leukocytosis improved to 15.3 on day of discharge. Patient will obtain follow- up labs after discharge to be copied to Dr. Dr. Sexton. For problem-based summary from most recent progress note, please see below. 22-year-old female with sickle cell disease presented with vaso-occlusive crisis , patient's chest x-ray with diffuse airspace disease. She has rales on exam and reported chest discomfort, cough. Concern for mild acute chest syndrome. //Vaso-occlusive sickle cell crisis/concern for acute chest syndrome //Sickle cell anemia.: - Hemoglobin currently not too far from baseline. Monitor closely - Supportive care with aggressive IV fluid and pain control - Obtain LDH, cardiac enzymes - Empiric antibiotics with Rocephin and azithromycin - Multivitamin and folic acid - Consult hematology for assistance = 05/20. Hemoglobin 6.1. Likely secondary to sickling. Patient started on mandatory 4 L oxygen by nasal cannula. Transfuse 2 units. Hematology following. Appreciate assistance. = 05/21. Hemoglobin improved to 8.8. Continue on oxygen by nasal cannula. =/2. Hemoglobin improved over 9. She is stable for discharge home. //Probable pneumonia: - Antibiotics as above. = 05/20. Continue broad-spectrum antibiotics. = 05/21. Continues with improvement. Plan for transition to by mouth antibiotics possibly tomorrow. = 05/22. Continue azithromycin to complete treatment course. //Leukocytosis: Probably secondary to above. -Leukocytes improving. 18.7. Continue to monitor. = Improving 15. Follow-up labs to be copied to Dr. sexton versus outpatient. //Hypokalemia: - Replace and monitor. = 05/20. Potassium 3.1. Replaced again. Continue to monitor. = 05/21. Potassium 3.0. Replace again. Recheck tomorrow = Resolved after replacement. //GI prophylaxis: Stool softener PRN constipation. Pt Condition on Discharge: Good Discharge Disposition: Disch w/ Home Health Serv Discharge Time: > 30 minutes Discharge Instructions DIET: Follow Instructions for: As Tolerated, No Restrictions Activities you can perform: Regular-No Restrictions Follow up Referrals: Oncology/Hematology - 1 Week with Mable Sexton MD PCP Follow-up - 1 Week New Orders: CBC WITH DIFF - 3-5 Days New Medications: Azithromycin (Azithromycin) 250 Mg Tab 500 MG PO DAILY for Infection, #4 TAB Continued Medications: Oxycodone HCl/Acetaminophen (Oxycodon-Acetaminophen 7.5-325) 7.5 Mg-325 Mg Tablet 1 TAB PO Q4H PRN for PAIN > 3, #20 Paul Bajwa MD May 22, 2017 11:43
[2017-05-22 12:15] VITALS: BP_SYST 114; BP_SYST 80; BP_DIAS 53; BP_DIAS 65; PULSE 67; RESP 18; TEMP 97.3; TEMP 98; O2SAT 96; O2SAT 97
--- NOTE | 2017-05-22 12:40 | PD.ONC.PN ---
Subjective Subjective Remarks Afebrile overnight. Patient resting in bed in nad. "I feel much better. I'm ready to go home." Has no complaints. Objective Data Date Time Temp Pulse Resp B/P (MAP) Pulse Ox O2 Delivery O2 Flow Rate FiO2 05/22/17 12:15 98.0 67 18 114/65 (81) 97 05/22/17 09:22 Nasal Cannula 2.00 05/22/17 08:42 98.3 77 18 122/62 (82) 100 05/22/17 08:00 77 05/22/17 04:00 98.1 83 20 107/54 (71) 95 05/22/17 04:00 Nasal Cannula 2.00 05/22/17 03:45 91 05/22/17 00:31 Nasal Cannula 2.00 05/22/17 00:31 98.2 98 20 111/60 (77) 97 05/21/17 23:49 102 05/21/17 21:45 96 05/21/17 20:55 97.9 85 20 119/60 (79) 95 05/21/17 20:55 Room Air 05/21/17 19:45 71 05/21/17 16:00 97.7 77 20 113/63 (80) 97 05/21/17 16:00 86 05/22/17 05/22/17 05/22/17 07:00 15:00 23:00 Intake Total 2258 ml Balance 2258 ml Result Diagram: 05/22/17 0632 05/22/17 0632 Laboratory Results Laboratory Tests Test 05/22/17 06:32 White Blood Count 15.3 TH/MM3 Red Blood Count 3.10 MIL/MM3 Hemoglobin 9.4 GM/DL Hematocrit 26.0 % Mean Corpuscular Volume 83.8 FL Mean Corpuscular Hemoglobin 30.4 PG Mean Corpuscular Hemoglobin Concent 36.3 % Red Cell Distribution Width 22.3 % Platelet Count 637 TH/MM3 Mean Platelet Volume 7.6 FL Neutrophils (%) (Auto) 56.6 % Lymphocytes (%) (Auto) 28.8 % Monocytes (%) (Auto) 11.3 % Eosinophils (%) (Auto) 2.9 % Basophils (%) (Auto) 0.4 % Neutrophils # (Auto) 8.6 TH/MM3 Lymphocytes # (Auto) 4.4 TH/MM3 Monocytes # (Auto) 1.7 TH/MM3 Eosinophils # (Auto) 0.4 TH/MM3 Basophils # (Auto) 0.1 TH/MM3 CBC Comment AUTO DIFF Differential Total Cells Counted 100 Neutrophils % (Manual) 68 % Lymphocytes % 18 % Monocytes % 12 % Eosinophils % 2 % Neutrophils # (Manual) 10.4 TH/MM3 Differential Comment FINAL DIFF MANUAL Platelet Estimate HIGH Platelet Morphology Comment NORMAL Sickle Cells 1+ Target Cells 1+ Ovalocytes 1+ Li-Mettler Bodies PRESENT Red Cell Morphology Comment Blood Urea Nitrogen 1 MG/DL Creatinine 0.39 MG/DL Random Glucose 78 MG/DL Albumin 3.8 GM/DL Calcium Level 9.2 MG/DL Phosphorus Level 3.3 MG/DL Magnesium Level 2.2 MG/DL Sodium Level 140 MEQ/L Potassium Level 3.7 MEQ/L Chloride Level 107 MEQ/L Carbon Dioxide Level 26.1 MEQ/L Anion Gap 7 MEQ/L Estimat Glomerular Filtration Rate 251 ML/MIN Administered Medications Medications (Trade) Dose Ordered Sig/Annalee Route PRN Reason Start Time Stop Time Status Last Admin Dose Admin Sodium Chloride (NS Flush) 2 ml UNSCH PRN IV FLUSH FLUSH AFTER USING IV ACCESS 05/19/17 08:00 05/21/17 02:03 Sodium Chloride (NS Flush) 2 ml BID IV FLUSH 05/19/17 09:00 05/22/17 08:23 Morphine Sulfate (Morphine Inj) 2 mg Q4H PRN IV PUSH PAIN SCALE 1 TO 5 05/19/17 08:00 05/21/17 18:31 Morphine Sulfate (Morphine Inj) 5 mg Q4H PRN IV PUSH PAIN SCALE 6 TO 10 05/19/17 08:00 05/22/17 10:09 Acetaminophen (Tylenol) 650 mg Q4H PRN PO FEVER 05/19/17 08:00 05/19/17 23:57 Folic Acid (Folate) 1 mg DAILY PO 05/19/17 09:00 05/22/17 08:22 Multivitamins (Theragran) 1 tab DAILY PO 05/19/17 09:00 05/22/17 08:22 Diphenhydramine HCl (Benadryl) 25 mg Q4H PRN PO ITCHING 05/19/17 08:00 05/21/17 00:22 Ceftriaxone Sodium 1000 mg/ Sodium Chloride 100 ml @ 200 mls/hr Q24H IV 05/20/17 08:00 05/22/17 08:22 Azithromycin (Zithromax) 500 mg DAILY PO 05/20/17 09:00 05/22/17 08:22 Hydromorphone HCl (Dilaudid Pf Inj) 1 mg Q3HR IV PUSH 05/19/17 19:00 05/22/17 08:22 Potassium Chloride/Sodium Chloride 1,000 ml @ 125 mls/hr Q8H IV 05/20/17 10:30 05/22/17 10:10 Objective Remarks GENERAL: Young woman, sitting up in bed watching TV in [facility]. SKIN: Warm and dry. HEAD: Normocephalic. EYES: No injection or drainage. NECK: Supple, trachea midline. CARDIOVASCULAR: Regular rate and rhythm RESPIRATORY: Breath sounds equal bilaterally. No accessory muscle use. GASTROINTESTINAL: Abdomen soft, non-tender, nondistended. EXTREMITIES: No cyanosis NEUROLOGICAL: No obvious focal deficit. Awake, alert, and oriented x3. Assessment/Plan Problem List: (1) Vaso-occlusive sickle cell crisis ICD Codes: D57.00 - Hb-SS disease with crisis, unspecified Status: Acute Plan: 2/2: feeling improved. hemoglobin stable. clear for discharge. Assessment 22 y/o woman with Hgb SC disease with vasoocclusive crisis. Cont current support. Plan 1. clear for discharge 2. follow up in clinic. Lola Castellanos May 22, 2017 12:40
== END 2017-05-22 13:08 | disposition home or self-care (01) | DRG 811 ==
LOC: NEPC 04:42 → OBSVTOIN 08:03 → NEDA 08:03 → N04B 16:45
PROVIDERS: ADMIT Internal Medicine; ATTEND Internal Medicine
PROC: 30233N1 Transfusion of Nonautologous Red Blood Cells into Peripheral Vein, Percutaneous Approach (ICD-10-PCS; principal; 2017-05-20)
DX: D57.211 Sickle-cell/Hb-C disease with acute chest syndrome (principal); J18.9 Pneumonia, unspecified organism; R82.90 Unspecified abnormal findings in urine; E87.6 Hypokalemia; I51.7 Cardiomegaly; R79.89 Other specified abnormal findings of blood chemistry; Z88.1 Allergy status to other antibiotic agents; Z90.81 Acquired absence of spleen
CPT/HCPCS: 36430; 71045; 76937; 80048; 80053; 80069; 80307; 81001; 82247; 82248; 83615; 83735; 84484; 84703; 85007; 85025; 85027; 85044; 86140; 86850; 86900; 86901; 86920; 87040; 87086; 94150; J0456; J0696; J1170; J1200; J1650; J2270; J2405; J3480; J7030; J7050; P9016

== ENCOUNTER 2017-07-30 21:27 | Emergency (ER) | payer OTHER ==
[~2017-07-30] VITALS: Ht 182.9 cm; Wt 67.0 kg
[~2017-07-30 21:27] MED LIST changes: +AZIT250T3 PO
[2017-07-30 22:09] VITALS: BP 109/54; PULSE 101; RESP 18; TEMP 98.4; O2SAT 97
[2017-07-30] MEDS ORDERED: diphenhydrAMINE HCL 50 MG/ML VIAL IV PUSH ONE (22:30)
[2017-07-30] MEDS ORDERED: HYDROmorphone HCL PF 1 MG/ML VIAL IVS ONE (22:30)
[2017-07-30] MEDS ORDERED: SODIUM CHLOR 0.9% 1000 ML INJ 1,000 ML IV ONE (22:30)
[2017-07-30] MEDS ORDERED: ONDANSETRON HCL 4 MG/2 ML VIAL IVP ONE (22:30)
[2017-07-30] MEDS ORDERED: SODIUM CHLORIDE 0.9% FLUSH 10 ML FLUSH IVF PRN (22:30)
[2017-07-30] MEDS ORDERED: HYDROmorphone HCL PF 2 MG/ML VIAL IV ONE (23:30)
[2017-07-30 23:45] VITALS: BP 112/56; PULSE 72; RESP 16; O2SAT 96
[2017-07-31 00:13] LABS: AUTOMATED NEUTROPHIL # 9.3 TH/MM3 (1.8-7.7); BASOPHIL # 0.1 TH/MM3 (0-0.2); BASOPHIL % 0.5 % (0.0-2.0); EOSINOPHIL # 0.3 TH/MM3 (0-0.4); EOSINOPHIL % 1.6 % (0.0-4.0); HEMATOCRIT 25.1 % (35.0-46.0); HEMOGLOBIN 8.6 GM/DL (11.6-15.3); LYMPH % 37.5 % (9.0-44.0); LYMPHOCYTE # 6.7 TH/MM3 (1.0-4.8); MEAN CELL VOLUME 87.4 FL (80.0-100.0); MEAN CORPUSCULAR HEMOGLOBIN 30.1 PG (27.0-34.0); MEAN CORPUSCULAR HGB CONC 34.5 % (32.0-36.0); MONO % 8.9 % (0.0-8.0); MONOCYTE # 1.6 TH/MM3 (0-0.9); NEUT % 51.5 % (16.0-70.0); PLATELET COUNT 701 TH/MM3 (150-450); RED BLOOD COUNT 2.87 MIL/MM3 (4.00-5.30); RED CELL DISTRIBUTION WIDTH 22.3 % (11.6-17.2); RETIC # 271.4 MIL/L (20.0-150.0); RETIC % 9.5 % (0.4-3.0)
--- NOTE | 2017-07-31 00:31 | RADRPT ---
EXAM DATE/TIME: 07/30/2017 23:59 [facility] COMPARISON: CHEST SINGLE AP, May 19, 2017, 5:36. INDICATIONS : Sickle cell crisis- Chest pain and shortness of breath. MEDICAL HISTORY : Sickle Cell disease. SURGICAL HISTORY : None. ENCOUNTER: Initial ACUITY: 2 days PAIN SCORE: 5/10 LOCATION: Bilateral chest FINDINGS: PA and lateral views of the chest demonstrate the lungs to be symmetrically aerated without evidence of mass, infiltrate or effusion. The cardiomediastinal contours are unremarkable. Osseous structure s diffusely sclerotic. CONCLUSION: No acute disease Sumanth Garza MD on July 31, 2017 at 0:28 Board Certified Radiologist. This report was verified electronically.
[2017-07-31] MEDS ORDERED: SODIUM CHLOR 0.9% 1000 ML INJ 1,000 ML IV ONE ×2 (01:12→02:05)
[2017-07-31] MEDS ORDERED: diphenhydrAMINE HCL 50 MG/ML VIAL IV PUSH ONE ×2 (01:15→02:15)
[2017-07-31] MEDS ORDERED: ONDANSETRON HCL 4 MG/2 ML VIAL IVP ONE ×2 (01:15→02:15)
[2017-07-31] MEDS ORDERED: HYDROmorphone HCL PF 2 MG/ML VIAL IV PUSH ONE ×2 (01:15→02:15)
[2017-07-31 02:13] LABS: BANDS 3 % (0-6); LYMPHOCYTES 35 % (9-44); MONOCYTES 6 % (0-8); NEUTROPHIL # MANUAL DIFF 10.4 TH/MM3 (1.8-7.7); POLYS (SEG NEUTROPHILS) 55 % (16-70)
--- NOTE | 2017-07-31 02:13 | PD ---
HPI Chief Complaint: Pain: Acute or Chronic Time Seen by Provider: 22:14 Travel History International Travel<30 days: No Contact w/Intl Traveler<30days: No Traveled to known affect area: No History of Present Illness HPI 30-year-old female complains of pain in the arms and the knees. She has a history of sickle cell disease. She reports compliance with folic acid and hydroxyurea. She reports about 3-4 days of body aches and pain and knee pain. She reports no relief with Tylenol and ibuprofen. No fever. She states the pain is typical in quality to that she experiences during her sickle cell crises. No chest pain or shortness of breath. No fever. No vomiting. PFSH Past Medical History Blood Disorders: No Cancer: No Cardiovascular Problems: Yes (sickle cell) Chemotherapy: No Diabetes: No Diminished Hearing: No Endocrine: Yes Genitourinary: No Musculoskeletal: No Neurologic: No Psychiatric: No Reproductive: No Respiratory: No Immunizations Current: Yes Radiation Therapy: No Sickle Cell Disease: Yes Thyroid Disease: No ?: Not Past Surgical History Abdominal Surgery: Yes (spleena dn gallbladder removal) Cholecystectomy: Yes Other Surgery: Yes Social History Alcohol Use: No Tobacco Use: No Substance Use: No Allergies-Medications (Allergen,Severity, Reaction): Coded Allergies: levofloxacin (Verified Allergy, Unknown, 07/30/17) Reported Meds & Prescriptions Reported Meds & Active Scripts Active Azithromycin 250 Mg Tab 500 Mg PO DAILY Oxycodon-Acetaminophen 7.5-325 (Oxycodone HCl/Acetaminophen) 7.5 Mg-325 Mg Tablet 1 Tab PO Q4H PRN Review of Systems Except as stated in HPI: all other systems reviewed are Neg General / Constitutional: No: Fever Cardiovascular: No: Irregular Rhythm Respiratory: No: Cough, Shortness of Breath Physical Exam Narrative GENERAL: 22-year-old female pleasant well-nourished well-developed, mild distress secondary to pain Vital Signs Date Time Temp Pulse Resp B/P (MAP) Pulse Ox O2 Delivery O2 Flow Rate FiO2 07/30/17 23:45 72 16 112/56 (74) 96 Room Air 07/30/17 22:09 98.4 101 18 109/54 (72) 97 Room Air SKIN: Warm and dry. HEAD: Atraumatic. Normocephalic. EYES: Pupils equal and round. No scleral icterus. No injection or drainage. ENT: No nasal bleeding or discharge. Mucous membranes pink and moist. NECK: Trachea midline. No JVD. CARDIOVASCULAR: Tachycardia. Regular. RESPIRATORY: No accessory muscle use. Clear to auscultation. Breath sounds equal bilaterally. GASTROINTESTINAL: Abdomen soft, non-tender, nondistended. Hepatic and splenic margins not palpable. MUSCULOSKELETAL: Extremities without clubbing, cyanosis, or edema. No obvious deformities. NEUROLOGICAL: Awake and alert. No obvious cranial nerve deficits. Motor grossly within normal limits. Five out of 5 muscle strength in the arms and legs. Normal speech. PSYCHIATRIC: Appropriate mood and affect; insight and judgment normal. Data Data Last Documented VS Vital Signs Date Time Temp Pulse Resp B/P (MAP) Pulse Ox O2 Delivery O2 Flow Rate FiO2 07/30/17 23:45 72 16 112/56 (74) 96 Room Air 07/30/17 22:09 98.4 Orders Orders Basic Metabolic Panel (Bmp) (07/30/17 22:30) Complete Blood Count With Diff (07/30/17 22:30) Retic Count (07/30/17 22:30) Chest, Pa & Lat (07/30/17 22:30) Ecg Monitoring (07/30/17 22:30) Iv Access Insert/Monitor (07/30/17 22:30) Oximetry (07/30/17 22:30) Ondansetron Inj (Zofran Inj) (07/30/17 22:30) Sodium Chloride 0.9% Flush (Ns Flush) (07/30/17 22:30) Sodium Chlor 0.9% 1000 Ml Inj (Ns 1000 M (07/30/17 22:30) Hydromorphone Pf Inj (Dilaudid Pf Inj) (07/30/17 22:30) Diphenhydramine Inj (Benadryl Inj) (07/30/17 22:30) Hydromorphone Pf Inj (Dilaudid Pf Inj) (07/30/17 23:30) Ondansetron Inj (Zofran Inj) (07/31/17 01:15) Sodium Chlor 0.9% 1000 Ml Inj (Ns 1000 M (07/31/17 01:12) Diphenhydramine Inj (Benadryl Inj) (07/31/17 01:15) Hydromorphone Pf Inj (Dilaudid Pf Inj) (07/31/17 01:15) Ondansetron Inj (Zofran Inj) (07/31/17 02:15) Sodium Chlor 0.9% 1000 Ml Inj (Ns 1000 M (07/31/17 02:05) Hydromorphone Pf Inj (Dilaudid Pf Inj) (07/31/17 02:15) Diphenhydramine Inj (Benadryl Inj) (07/31/17 02:15) Hydromorphone Pf Inj (Dilaudid Pf Inj) (07/31/17 02:15) Labs Laboratory Tests Test 07/30/17 23:50 White Blood Count 18.0 TH/MM3 Red Blood Count 2.87 MIL/MM3 Hemoglobin 8.6 GM/DL Hematocrit 25.1 % Mean Corpuscular Volume 87.4 FL Mean Corpuscular Hemoglobin 30.1 PG Mean Corpuscular Hemoglobin Concent 34.5 % Red Cell Distribution Width 22.3 % Platelet Count 701 TH/MM3 Mean Platelet Volume 8.0 FL Neutrophils (%) (Auto) 51.5 % Lymphocytes (%) (Auto) 37.5 % Monocytes (%) (Auto) 8.9 % Eosinophils (%) (Auto) 1.6 % Basophils (%) (Auto) 0.5 % Neutrophils # (Auto) 9.3 TH/MM3 Lymphocytes # (Auto) 6.7 TH/MM3 Monocytes # (Auto) 1.6 TH/MM3 Eosinophils # (Auto) 0.3 TH/MM3 Basophils # (Auto) 0.1 TH/MM3 CBC Comment AUTO DIFF Reticulocyte Count 9.5 % Absolute Reticulocyte Count 271.4 MIL/L MDM Medical Decision Making Medical Screen Exam Complete: Yes Emergency Medical Condition: Yes Medical Record Reviewed: Yes Differential Diagnosis Sickle cell crisis, anemia, pneumonia, acute chest syndrome Narrative Course CBC & BMP Diagram 07/30/17 23:50 Patient received 3 rounds of hydromorphone, Benadryl and Zofran. We see thrombocytosis and leukocytosis with a hemoglobin of 8.6. We have seen this before. the patient is stable for discharge. CXR: [facility] Last Impressions Chest X-Ray 07/30/17 4580 Signed Impressions: Service Date/Time: July 23:59 - CONCLUSION: No acute disease Sumanth Garza MD Diagnosis Primary Impression: Sickle cell crisis Med/Other Pt SpecificInfo: No Change to Meds Disposition: 01 DISCHARGE HOME Condition: Stable Hema Trejo MD Jul 31, 2017 02:13
[2017-07-31 02:14] LABS: ACANTHOCYTES OCC (NORMAL); HOWELL-JOLLY BODIES PRESENT (NONE SEEN); POLYCHROMASIA 2.1 % (0.0-1.9)
[2017-07-31] MEDS ORDERED: HYDROmorphone HCL PF 1 MG/ML VIAL IVS ONE (02:15)
[2017-07-31 02:35] VITALS: BP 95/54; PULSE 75; RESP 16; O2SAT 98
[2017-07-31 03:22] VITALS: BP 106/52
== END 2017-07-31 03:36 | disposition home or self-care (01) ==
LOC: NEPE 21:27
DX: D57.00 Hb-SS disease with crisis, unspecified (principal)
CPT/HCPCS: 71046; 85007; 85027; 85044; 96374; 96375; 96376; 99284; J1170; J1200; J2405; J7030

== ENCOUNTER 2017-08-21 14:39 | Emergency (ER) | payer OTHER ==
[~2017-08-21] VITALS: Ht 182.9 cm; Wt 73.0 kg
[2017-08-21 14:57] VITALS: BP 102/46; PULSE 74; RESP 16; TEMP 98.2; O2SAT 100
[2017-08-21] MEDS ORDERED: SODIUM CHLOR 0.9% 1000 ML INJ 1,000 ML IV ONE (15:29)
[2017-08-21] MEDS ORDERED: SODIUM CHLORIDE 0.9% FLUSH 10 ML FLUSH IVF PRN (15:30)
[2017-08-21] MEDS ORDERED: ONDANSETRON HCL 4 MG/2 ML VIAL IVP ONE (15:30)
[2017-08-21] MEDS ORDERED: HYDROmorphone HCL PF 1 MG/ML VIAL IV PUSH ONE (15:30)
--- NOTE | 2017-08-21 15:46 | PD ---
HPI Chief Complaint: Sickle Cell Time Seen by Provider: 15:19 Travel History International Travel<30 days: No Contact w/Intl Traveler<30days: No Traveled to known affect area: No History of Present Illness HPI 22-year-old female with history of sickle cell disease presents for evaluation pain. Symptoms started this morning. Pain is a sharp pain in the right hip that is radiating to the right knee, consistent with previous sickle cell crises. She denies any chest pain or shortness of breath, vomiting. She does have some nausea. Denies any recent illness, fevers or chills. She has no other complaints at this time. PFSH Past Medical History Blood Disorders: No Cancer: No Cardiovascular Problems: Yes (sickle cell) Chemotherapy: No Diabetes: No Diminished Hearing: No Endocrine: Yes Genitourinary: No Musculoskeletal: No Neurologic: No Psychiatric: No Reproductive: No Respiratory: No Immunizations Current: Yes Radiation Therapy: No Sickle Cell Disease: Yes Thyroid Disease: No ?: Not LMP: just ended Past Surgical History Abdominal Surgery: Yes (spleena dn gallbladder removal) Cholecystectomy: Yes Other Surgery: Yes Social History Alcohol Use: No Tobacco Use: No Substance Use: No Allergies-Medications (Allergen,Severity, Reaction): Coded Allergies: levofloxacin (Verified Allergy, Unknown, 08/21/17) Reported Meds & Prescriptions Reported Meds & Active Scripts Active Oxycodone (Oxycodone HCl) 30 Mg Tab 30 Mg PO Q6H PRN Reported Hydrea (Hydroxyurea) 500 Mg Cap 500 Mg PO DAILY Folic Acid 0.8 Mg Tab 800 Mcg PO DAILY Review of Systems Except as stated in HPI: all other systems reviewed are Neg Physical Exam Narrative GENERAL: Well-developed well-nourished female who appears uncomfortable. SKIN: Warm and dry. HEAD: Atraumatic. Normocephalic. EYES: Pupils equal and round. No scleral icterus. No injection or drainage. ENT: No nasal bleeding or discharge. Mucous membranes pink and moist. NECK: Trachea midline. No JVD. CARDIOVASCULAR: Regular rate and rhythm. No murmur appreciated. RESPIRATORY: No accessory muscle use. Clear to auscultation. Breath sounds equal bilaterally. GASTROINTESTINAL: Abdomen soft, non-tender, nondistended. Hepatic and splenic margins not palpable. MUSCULOSKELETAL: No obvious deformities. No clubbing. No cyanosis. No edema. NEUROLOGICAL: Awake and alert. No obvious cranial nerve deficits. Motor grossly within normal limits. Normal speech. PSYCHIATRIC: Appropriate mood and affect; insight and judgment normal. Data Data Last Documented VS Vital Signs Date Time Temp Pulse Resp B/P (MAP) Pulse Ox O2 Delivery O2 Flow Rate FiO2 08/21/17 16:34 69 18 107/59 (75) 100 Room Air 08/21/17 14:57 98.2 Orders Orders Basic Metabolic Panel (Bmp) (08/21/17 15:29) Complete Blood Count With Diff (08/21/17 15:29) Retic Count (08/21/17 15:29) Ecg Monitoring (08/21/17 15:29) Iv Access Insert/Monitor (08/21/17 15:29) Oximetry (08/21/17 15:29) Ondansetron Inj (Zofran Inj) (08/21/17 15:30) Sodium Chloride 0.9% Flush (Ns Flush) (08/21/17 15:30) Sodium Chlor 0.9% 1000 Ml Inj (Ns 1000 M (08/21/17 15:29) Hydromorphone Pf Inj (Dilaudid Pf Inj) (08/21/17 15:30) Hip, Uni(Ap&Lat) W Ap Pelvis (08/21/17 ) Ed Urine Pregnancytest Poc (08/21/17 15:29) Hydromorphone Pf Inj (Dilaudid Pf Inj) (08/21/17 16:15) Potassium Chloride (Kcl) (08/21/17 17:00) Ed Discharge Order (08/21/17 16:50) Diphenhydramine Inj (Benadryl Inj) (08/21/17 17:15) Hydromorphone Pf Inj (Dilaudid Pf Inj) (08/21/17 18:00) Labs Laboratory Tests Test 08/21/17 16:15 White Blood Count 17.7 TH/MM3 Red Blood Count 2.52 MIL/MM3 Hemoglobin 7.7 GM/DL Hematocrit 22.0 % Mean Corpuscular Volume 87.3 FL Mean Corpuscular Hemoglobin 30.6 PG Mean Corpuscular Hemoglobin Concent 35.0 % Red Cell Distribution Width 22.7 % Platelet Count 657 TH/MM3 Mean Platelet Volume 7.3 FL Neutrophils (%) (Auto) 59.7 % Lymphocytes (%) (Auto) 32.1 % Monocytes (%) (Auto) 6.4 % Eosinophils (%) (Auto) 0.8 % Basophils (%) (Auto) 1.0 % Neutrophils # (Auto) 10.6 TH/MM3 Lymphocytes # (Auto) 5.7 TH/MM3 Monocytes # (Auto) 1.1 TH/MM3 Eosinophils # (Auto) 0.1 TH/MM3 Basophils # (Auto) 0.2 TH/MM3 CBC Comment AUTO DIFF Differential Total Cells Counted 100 Neutrophils % (Manual) 62 % Lymphocytes % 25 % Monocytes % 11 % Eosinophils % 1 % Basophils % 1 % Neutrophils # (Manual) 11.0 TH/MM3 Differential Comment FINAL DIFF MANUAL Platelet Estimate HIGH Platelet Morphology Comment NORMAL Spherocytes 1+ Sickle Cells 1+ Target Cells 2+ Ovalocytes 1+ Stomatocytes Reticulocyte Count 9.0 % Absolute Reticulocyte Count 226.2 MIL/L Blood Urea Nitrogen 5 MG/DL Creatinine 0.58 MG/DL Random Glucose 80 MG/DL Calcium Level 9.1 MG/DL Sodium Level 142 MEQ/L Potassium Level 3.4 MEQ/L Chloride Level 106 MEQ/L Carbon Dioxide Level 27.5 MEQ/L Anion Gap 9 MEQ/L Estimat Glomerular Filtration Rate 159 ML/MIN [facility] Medical Decision Making Medical Screen Exam Complete: Yes Emergency Medical Condition: Yes Medical Record Reviewed: Yes Differential Diagnosis Sickle cell crisis, avascular necrosis, radiculopathy Narrative Course 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 The patient was given IV fluids and antiemetics and analgesics with improvement in her symptoms. Her lab work is consistent with sickle cell crisis. She has leukocytosis which is consistent with previous visits as well. She will be discharged to follow-up with her marketing finance manager. She will be given a short refill of her oxycodone in anticipation of follow-up with her primary care physician on Thursday. Diagnosis Primary Impression: Vaso-occlusive sickle cell crisis Additional Instructions: Stay well hydrated and well-nourished. Use your at home pain medication as needed. Follow-up with your marketing finance manager. Return for any emergent medical conditions. Med/Other Pt SpecificInfo: Prescription(s) given Scripts Oxycodone (Oxycodone) 30 Mg Tab 30 MG PO Q6H Y for PAIN, #12 TAB 0 Refills Prov: Elizabeth Real MD 08/21/17 Disposition: 01 DISCHARGE HOME Condition: Stable Zane Coffey August 21, 2017 15:46
[2017-08-21] MEDS ORDERED: HYDROmorphone HCL PF 2 MG/ML VIAL IV PUSH ONE ×2 (16:15→18:00)
--- NOTE | 2017-08-21 16:19 | RADRPT ---
EXAM DATE/TIME: 08/21/2017 15:53 [facility] COMPARISON: No previous studies available for comparison. INDICATIONS : Right hip pain, no known injury. MEDICAL HISTORY : Sickle Cell disease. SURGICAL HISTORY : None. 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 Similar changes are seen in the pelvis. CONCLUSION: Bony changes of sickle cell with early avascular necrosis both femoral heads. Neri Greco MD FACR on August 21, 2017 at 16:15 Board Certified Radiologist. This report was verified electronically.
[2017-08-21] MEDS ORDERED: FOLI800T PO (16:33)
[2017-08-21] MEDS ORDERED: HYDR500C PO (16:33)
[2017-08-21 16:34] VITALS: BP 107/59; PULSE 69; RESP 18; O2SAT 100
[2017-08-21 16:38] LABS: AUTOMATED NEUTROPHIL # 10.6 TH/MM3 (1.8-7.7); BASOPHIL # 0.2 TH/MM3 (0-0.2); EOSINOPHIL # 0.1 TH/MM3 (0-0.4); EOSINOPHIL % 0.8 % (0.0-4.0); HEMOGLOBIN 7.7 GM/DL (11.6-15.3); LYMPH % 32.1 % (9.0-44.0); LYMPHOCYTE # 5.7 TH/MM3 (1.0-4.8); MEAN CELL VOLUME 87.3 FL (80.0-100.0); MEAN CORPUSCULAR HEMOGLOBIN 30.6 PG (27.0-34.0); MEAN PLATELET VOLUME 7.3 FL (7.0-11.0); MONO % 6.4 % (0.0-8.0); MONOCYTE # 1.1 TH/MM3 (0-0.9); NEUT % 59.7 % (16.0-70.0); PLATELET COUNT 657 TH/MM3 (150-450); RED BLOOD COUNT 2.52 MIL/MM3 (4.00-5.30); RED CELL DISTRIBUTION WIDTH 22.7 % (11.6-17.2); RETIC # 226.2 MIL/L (20.0-150.0); WHITE BLOOD COUNT 17.7 TH/MM3 (4.0-11.0)
[2017-08-21 16:41] LABS: BICARBONATE 27.5 MEQ/L (21.0-32.0); CALCIUM 9.1 MG/DL (8.5-10.1); CREATININE 0.58 MG/DL (0.50-1.00)
[2017-08-21] MEDS ORDERED: POTASSIUM CHLORIDE 20 MEQ CONTROLLED RELEASE TAB PO ONE (17:00)
[2017-08-21] MEDS ORDERED: diphenhydrAMINE HCL 50 MG/ML VIAL IV PUSH ONE (17:15)
[2017-08-21 17:16] LABS: BASOPHILS 1 % (0-2); LYMPHOCYTES 25 % (9-44); MONOCYTES 11 % (0-8); POLYS (SEG NEUTROPHILS) 62 % (16-70)
[2017-08-21 17:17] LABS: OVALOCYTES 1+ (NORMAL); TARGET CELLS 2+ (NORMAL)
[2017-08-21 17:18] LABS: SPHEROCYTES 1+ (NORMAL)
[2017-08-21 17:19] LABS: SICKLE CELLS 1+ (NORMAL)
[2017-08-21] MEDS ORDERED: OXYC30TA PO (18:09)
[2017-08-21 19:16] VITALS: BP 107/68
== END 2017-08-21 19:19 | disposition home or self-care (01) ==
LOC: NEPD 14:39
DX: D57.00 Hb-SS disease with crisis, unspecified (principal); M87.9 Osteonecrosis, unspecified; R11.0 Nausea; Z79.899 Other long term (current) drug therapy
CPT/HCPCS: 73502; 80048; 85007; 85027; 85044; 96361; 96374; 96375; 96376; 99284; J1170; J1200; J2405; J7030

== ENCOUNTER 2017-08-22 05:23 | Emergency (ER) | payer OTHER ==
[~2017-08-22] VITALS: Ht 182.9 cm; Wt 72.5 kg
[~2017-08-22 05:23] MED LIST changes: -AZIT250T3 PO; +FOLI800T PO; +HYDR500C PO; -OXYC1TAB35 PO; +OXYC30TA PO
[2017-08-22 05:28] VITALS: BP 94/53; PULSE 87; RESP 16; TEMP 98.1; O2SAT 98
--- NOTE | 2017-08-22 05:55 | PD ---
HPI Chief Complaint: Sickle Cell Time Seen by Provider: 05:34 Travel History International Travel<30 days: No Contact w/Intl Traveler<30days: No Traveled to known affect area: No History of Present Illness HPI 22-year-old woman with a history of sickle cell disease (possibly sickle-thal or SC disease). Symptoms started yesterday morning. Sharp right hip pain and right knee pain with some low back pain consistent with her previous crises. Denies any fevers or chills. No chest pain or trouble breathing. Otherwise been feeling well. Does well in between episodes but gets episodes about every 2-3 months. She is a student. History Past Medical History Narrative Medical Sickle cell anemia Tetanus Vaccination: < 5 Years Influenza Vaccination: Yes LMP: 08/20/17 Social History Alcohol Use: No Tobacco Use: No Allergies-Medications (Allergen,Severity, Reaction): Coded Allergies: levofloxacin (Verified Allergy, Unknown, 08/21/17) Reported Meds & Prescriptions Reported Meds & Active Scripts Active Oxycodone (Oxycodone HCl) 30 Mg Tab 30 Mg PO Q6H PRN Reported Hydrea (Hydroxyurea) 500 Mg Cap 500 Mg PO DAILY Folic Acid 0.8 Mg Tab 800 Mcg PO DAILY Review of Systems Except as stated in HPI: all other systems reviewed are Neg Physical Exam Narrative GENERAL: Well-appearing 22-year-old woman, no acute distress. SKIN: Focused skin assessment warm/dry. HEAD: Atraumatic. Normocephalic. EYES: Pupils equal and round. No scleral icterus. No injection or drainage. ENT: No nasal bleeding or discharge. Mucous membranes pink and moist. NECK: Trachea midline. No JVD. CARDIOVASCULAR: Regular rate and rhythm. No murmur appreciated. RESPIRATORY: No accessory muscle use. Clear to auscultation. Breath sounds equal bilaterally. GASTROINTESTINAL: Abdomen soft, non-tender, nondistended. Hepatic and splenic margins not palpable. MUSCULOSKELETAL: No obvious deformities. Data Data Last Documented VS Vital Signs Date Time Temp Pulse Resp B/P (MAP) Pulse Ox O2 Delivery O2 Flow Rate FiO2 08/22/17 05:28 98.1 87 16 94/53 (67) 98 Room Air Orders Orders Hydromorphone Pf Inj (Dilaudid Pf Inj) (08/22/17 06:00) Ondansetron Inj (Zofran Inj) (08/22/17 06:00) Iv Access Insert/Monitor (08/22/17 05:47) MDM Medical Decision Making Medical Screen Exam Complete: Yes Emergency Medical Condition: Yes Differential Diagnosis Sickle cell vaso-occlusive pain crisis, infection, acute chest syndrome, other Narrative Course Medical decision making This 22-year-old woman presents emergency department complaining of recurrent vaso-occlusive pain. Unable to get prescriptions filled due to some problem with her ID or the pharmacy. She looks generally well. No infectious symptoms. Will give pain control, reassess. León Olievira MD August 22, 2017 05:55
[2017-08-22] MEDS ORDERED: ONDANSETRON HCL 4 MG/2 ML VIAL IV ONE ×2 (06:00→06:45)
[2017-08-22] MEDS ORDERED: HYDROmorphone HCL PF 2 MG/ML VIAL IVS ONE ×2 (06:00→06:45)
[2017-08-22] MEDS ORDERED: SODIUM CHLOR 0.9% 1000 ML INJ 1,000 ML IV ONE (06:45)
[2017-08-22] MEDS ORDERED: SODIUM CHLORIDE 0.9% FLUSH 10 ML FLUSH IVF PRN (07:15)
[2017-08-22 07:34] LABS: AUTOMATED NEUTROPHIL # 6.2 TH/MM3 (1.8-7.7); BASOPHIL # 0.1 TH/MM3 (0-0.2); BASOPHIL % 0.6 % (0.0-2.0); EOSINOPHIL # 0.2 TH/MM3 (0-0.4); EOSINOPHIL % 1.9 % (0.0-4.0); HEMATOCRIT 21.1 % (35.0-46.0); HEMOGLOBIN 7.9 GM/DL (11.6-15.3); LYMPH % 43.1 % (9.0-44.0); LYMPHOCYTE # 5.6 TH/MM3 (1.0-4.8); MEAN CORPUSCULAR HEMOGLOBIN 32.4 PG (27.0-34.0); MEAN PLATELET VOLUME 7.6 FL (7.0-11.0); MONO % 6.3 % (0.0-8.0); MONOCYTE # 0.8 TH/MM3 (0-0.9); NEUT % 48.1 % (16.0-70.0); PLATELET COUNT 640 TH/MM3 (150-450); RED BLOOD COUNT 2.43 MIL/MM3 (4.00-5.30); RED CELL DISTRIBUTION WIDTH 22.4 % (11.6-17.2); RETIC # 192.8 MIL/L (20.0-150.0); RETIC % 7.9 % (0.4-3.0); WHITE BLOOD COUNT 12.9 TH/MM3 (4.0-11.0)
[2017-08-22 07:35] LABS: MEAN CORPUSCULAR HGB CONC 37.2 % (32.0-36.0)
[2017-08-22 07:54] LABS: BICARBONATE 29.1 MEQ/L (21.0-32.0); CALCIUM 8.7 MG/DL (8.5-10.1); CREATININE 0.64 MG/DL (0.50-1.00)
[2017-08-22 08:07] LABS: BASOPHILS 1 % (0-2); LYMPHOCYTES 44 % (9-44); MONOCYTES 12 % (0-8); NEUTROPHIL # MANUAL DIFF 5.2 TH/MM3 (1.8-7.7); POLYS (SEG NEUTROPHILS) 40 % (16-70)
[2017-08-22 08:08] LABS: HOWELL-JOLLY BODIES PRESENT (NONE SEEN); KERATOCYTES OCC (NORMAL); SICKLE CELLS 1+ (NORMAL)
--- NOTE | 2017-08-22 08:45 | PD ---
Physical Exam Narrative General: No apparent distress, well appearing ENT: mmm Neck: Neck is supple, no meningeal signs, trachea is midline Cardiovascular: Regular rate and rhythm Lungs: No increased respiratory effort noted, no increased effort Extremities: No edema Neuro: Awake, motor and sensation grossly intact, normal speech Data Data Last Documented VS Vital Signs Date Time Temp Pulse Resp B/P (MAP) Pulse Ox O2 Delivery O2 Flow Rate FiO2 08/22/17 09:23 08/22/17 05:28 98.1 87 16 98 Room Air Orders Orders Hydromorphone Pf Inj (Dilaudid Pf Inj) (08/22/17 06:00) Ondansetron Inj (Zofran Inj) (08/22/17 06:00) Iv Access Insert/Monitor (08/22/17 05:47) Ondansetron Inj (Zofran Inj) (08/22/17 06:45) Sodium Chlor 0.9% 1000 Ml Inj (Ns 1000 M (08/22/17 06:45) Hydromorphone Pf Inj (Dilaudid Pf Inj) (08/22/17 06:45) Basic Metabolic Panel (Bmp) (08/22/17 07:04) Complete Blood Count With Diff (08/22/17 07:04) Retic Count (08/22/17 07:04) Ecg Monitoring (08/22/17 07:04) Oximetry (08/22/17 07:04) Sodium Chloride 0.9% Flush (Ns Flush) (08/22/17 07:15) Ed Discharge Order (08/22/17 08:39) Labs Laboratory Tests Test 08/22/17 07:10 White Blood Count 12.9 TH/MM3 Red Blood Count 2.43 MIL/MM3 Hemoglobin 7.9 GM/DL Hematocrit 21.1 % Mean Corpuscular Volume 87.0 FL Mean Corpuscular Hemoglobin 32.4 PG Mean Corpuscular Hemoglobin Concent 37.2 % Red Cell Distribution Width 22.4 % Platelet Count 640 TH/MM3 Mean Platelet Volume 7.6 FL Neutrophils (%) (Auto) 48.1 % Lymphocytes (%) (Auto) 43.1 % Monocytes (%) (Auto) 6.3 % Eosinophils (%) (Auto) 1.9 % Basophils (%) (Auto) 0.6 % Neutrophils # (Auto) 6.2 TH/MM3 Lymphocytes # (Auto) 5.6 TH/MM3 Monocytes # (Auto) 0.8 TH/MM3 Eosinophils # (Auto) 0.2 TH/MM3 Basophils # (Auto) 0.1 TH/MM3 CBC Comment AUTO DIFF Differential Total Cells Counted 100 Neutrophils % (Manual) 40 % Lymphocytes % 44 % Monocytes % 12 % Eosinophils % 3 % Basophils % 1 % Neutrophils # (Manual) 5.2 TH/MM3 Differential Comment FINAL DIFF MANUAL Platelet Estimate HIGH Platelet Morphology Comment NORMAL Sickle Cells 1+ Li-Nye Bodies PRESENT Keratocytes OCC Reticulocyte Count 7.9 % Absolute Reticulocyte Count 192.8 MIL/L Blood Urea Nitrogen 5 MG/DL Creatinine 0.64 MG/DL Random Glucose 73 MG/DL Calcium Level 8.7 MG/DL Sodium Level 143 MEQ/L Potassium Level 4.0 MEQ/L Chloride Level 107 MEQ/L Carbon Dioxide Level 29.1 MEQ/L Anion Gap 7 MEQ/L Estimat Glomerular Filtration Rate 142 ML/MIN MDM Supervised Visit with AARON: No Interpretation(s) CBC & BMP Diagram 08/22/17 07:10 Calcium Level 8.7 Narrative Course Signed over to me to reassess after additional pain medication and is feeling better could go home. Blood work shows improving signs from yesterday and she was resting on recheck. We will have case management assist with outpatient prescription and follow- up. Questions answered, patient feeling better, no new complaints Diagnosis Primary Impression: Vaso-occlusive sickle cell crisis Patient Instructions: General Instructions Additional Instruction: take your home pain medication as directed, follow with your primary thursday, return with any emergent need Med/Other Pt SpecificInfo: No Change to Meds Disposition: 01 DISCHARGE HOME Condition: Stable Holly Waite MD August 22, 2017 08:45
== END 2017-08-22 09:25 | disposition home or self-care (01) ==
LOC: NEPE 05:23
DX: D57.00 Hb-SS disease with crisis, unspecified (principal)
CPT/HCPCS: 80048; 85007; 85027; 85044; 96374; 96375; 96376; 99284; J1170; J2405; J7030